=== PATIENT | male | born 1980 | race Caucasian/White ===

== ENCOUNTER 2017-05-31 11:32 | Emergency (ER) | payer OTHER ==
[2017-05-31] MEDS ORDERED: KETOROLAC TROMETHAMINE INJ/PF 30 MG/1 ML SDV IV ONE (12:07)
[2017-05-31 12:31] LABS: ABSOLUTE BASOPHILS # (AUTO) 0.1 10^3/uL (0.0-0.2); ABSOLUTE EOSINOPHILS # (AUTO) 0.1 10^3/uL (0.0-0.6); ABSOLUTE LYMPHOCYTES (AUTO) 2.2 10^3/uL (0.5-4.7); ABSOLUTE MONOCYTES (AUTO) 0.5 10^3/uL (0.1-1.4); ABSOLUTE NEUT (AUTO) 6.4 10^3/uL (1.7-8.2); ADD ON TESTING BLD IN LAB ACKNOWLEDGE; BASOPHILS % (AUTO) 0.5 % (0-2); EOSINOPHILS % (AUTO) 0.6 % (0-6); HEMATOCRIT 48.9 % (37.9-51.0); HEMOGLOBIN 16.5 g/dL (13.5-17.0); HGB HCT DIFFERENCE 0.6; LYMPHOCYTES % (AUTO) 24.2 % (13-45); MEAN CORPUSCULAR HEMOGLOBIN 30.8 pg (27.0-33.4); MEAN CORPUSCULAR HGB CONC 33.7 g/dL (32.0-36.0); MEAN CORPUSCULAR VOLUME 91 fl (80-97); MONOCYTES % (AUTO) 5.4 % (3-13); RED BLOOD COUNT 5.36 10^6/uL (4.35-5.55); RED CELL DISTRIBUTION WIDTH 14.2 % (11.5-14.0); SEGMENTED NEUTROPHILS % (AUTO) 69.3 % (42-78); WHITE BLOOD COUNT 9.2 10^3/uL (4.0-10.5)
[2017-05-31 12:34] LABS: APPEARANCE,URINE CLEAR; BILIRUBIN,URINE NEGATIVE (NEGATIVE); GLUCOSE, URINE NEGATIVE (NEGATIVE); KETONES,URINE NEGATIVE (NEGATIVE); LEUKOCYTE ESTERASE,URINE TRACE (NEGATIVE); NITRITE,URINE NEGATIVE (NEGATIVE); PROTEIN,URINE NEGATIVE (NEGATIVE); URINE SPECIFIC GRAVITY 1.004; UROBILINOGEN,URINE NEGATIVE mg/dL (<2.0)
[2017-05-31 12:43] LABS: LITHIUM < 0.2 mEq/L (0.6-1.2)
[2017-05-31 12:47] LABS: ALANINE AMINOTRANSFERASE 25 U/L (21-72); ALBUMIN 4.8 g/dL (3.5-5.0); ALKALINE PHOSPHATASE 80 U/L (38-126); ANION GAP 12 (5-19); ASPARTATE AMINO TRANSFERASE 17 U/L (17-59); BILIRUBIN,DIRECT 0.4 mg/dL (0.0-0.4); BILIRUBIN,TOTAL 0.5 mg/dL (0.2-1.3); BLOOD UREA NITROGEN 14 mg/dL (7-20); CALCIUM 10.6 mg/dL (8.4-10.2); CARBON DIOXIDE 26 mmol/L (22-30); CHLORIDE 102 mmol/L (98-107); GLUCOSE 87 mg/dL (75-110); LIPASE 56.4 U/L (23-300); POTASSIUM 4.6 mmol/L (3.6-5.0); SODIUM 139.8 mmol/L (137-145); TOTAL PROTEIN 7.8 g/dL (6.3-8.2)
[2017-05-31] MEDS ORDERED: MORPHINE SULFATE 10 MG/ML INJ IV ONE (12:49)
--- NOTE | 2017-05-31 14:16 | RADIOLOGY REPORT (SQ) ---
EXAM DESCRIPTION: CT LTD RENAL STONE PROTOCOL ON COMPLETED DATE/TIME: 05/31/2017 2:04 pm REASON FOR STUDY: r flank pain COMPARISON: None. TECHNIQUE: CT scan of the abdomen and pelvis performed without intravenous or oral contrast. Images reviewed with lung, soft tissue, and bone windows. Reconstructed coronal and sagittal MPR images revi ewed. All images stored on PACS. All CT scanners at this facility use dose modulation, iterative reconstruction, and/or weight based d osing when appropriate to reduce radiation dose to as low as reasonably achievable (ALARA). [facility]: Dose Right [facility]: CareDose [facility]: Dose Right [facility]: Teradose 4D [facility]: [employer] RADIATION DOSE: mGy. LIMITATIONS: None. FINDINGS: LOWER CHEST: No significant findings. No nodules or infiltrates. NON-CONTRASTED LIVER, SPLEEN, ADRENALS: Evaluation limited by lack of IV contrast. No identified sign ificant masses. PANCREAS: No masses. No peripancreatic inflammatory changes. GALLBLADDER: No identified stones by CT criteria. No inflammatory changes to suggest cholecystitis. RIGHT KIDNEY AND URETER: No suspicious masses. Assessment limited by lack of IV contrast. Couple sm all nonobstructing renal calculi are identified. No hydronephrosis or hydroureter. LEFT KIDNEY AND URETER: No suspicious masses. Assessment limited by lack of IV contrast. Small nono bstructing renal calculus is identified. No hydronephrosis or hydroureter. AORTA AND RETROPERITONEUM: No aneurysm. No retroperitoneal masses or adenopathy. BOWEL AND PERITONEAL CAVITY: No obvious masses or inflammatory changes. No free fluid. APPENDIX: Status post appendectomy. PELVIS, BLADDER, AND ABDOMINAL WALL:No abnormal masses. No free fluid. Bladder normal. BONES: No significant findings. OTHER: No other significant finding. IMPRESSION: Small bilateral nonobstructing renal calculi. No obstructive changes are identified. O ther findings as noted above TECHNICAL DOCUMENTATION: JOB ID: [id number] Quality ID # [id number]: Final reports with documentation of one or more dose reduction techniques (e.g., Au tomated exposure control, adjustment of the mA and/or kV according to patient size, use of iterative reconstruction technique) 2010 [employer]- All Rights Reserved
--- NOTE | 2017-05-31 14:53 | ER Document Report ---
ED GI/ - General Chief Complaint: Possible Kidney Stone Stated Complaint: FLANK PAIN Time Seen by Provider: 05/31/17 12:08 Mode of Arrival: Ambulatory Information source: Patient Notes: Patient presents complaining of right flank pain for the past 3 days. Patient states that he has pain that radiates to his penis. Patient denies any scrotal pain. Patient does complain of some dysuria. Patient has a history kidney stones and suspects the same today. Patient denies any fever, nausea, vomiting , or diarrhea. Patient states that he has not seen his urologist in over a year. TRAVEL OUTSIDE OF THE [place] IN LAST 30 DAYS: No - HPI Patient complains to provider of: Dysuria, Flank pain. No: Abdominal pain, Testicular pain Onset: Other - 3 days Timing/Duration: Persistent Quality of pain: Sharp Pain Level: 5 Location: Right flank Associated symptoms: Dysuria. denies: Fever, Nausea, Urinary hesitancy, Urinary frequency, Urinary retention, Urinary urgency, Vomiting Exacerbated by: Denies Relieved by: Denies Similar symptoms previously: Yes Recently seen / treated by doctor: No - Related Data Allergies/Adverse Reactions: amoxicillin trihydrate [From Amoxil] Allergy (Verified 11/28/13 16:33) Past Medical History - General Information source: Patient - Social History Smoking Status: Current Every Day Smoker Cigarette use (# per day): Yes - for at least 3 min Smoking Education Provided: Yes - For at least 3 minutes Drug Abuse: None Occupation: none Lives with: Family Family History: Reviewed & Not Pertinent - Medical History Notes: Patient's medication list reviewed with patient. Renal/ Medical History: Reports: Hx Kidney Stones. Denies: Hx Peritoneal Dialysis Psychiatric Medical History: Reports: Hx Depression, Hx Post Traumatic Stress Disorder Past Surgical History: Reports: Hx Genitourinary Surgery - kidney stent, stone removal, Hx Orthopedic Surgery - Immunizations Hx Diphtheria, Pertussis, Tetanus Vaccination: Yes Review of Systems - Review of Systems Constitutional: No symptoms reported. denies: Fever, Recent illness EENT: No symptoms reported Cardiovascular: No symptoms reported. denies: Chest pain Respiratory: No symptoms reported. denies: Cough, Short of breath Gastrointestinal: No symptoms reported. denies: Abdominal pain, Nausea, Vomiting Genitourinary: Dysuria, Flank pain. denies: Hematuria Male Genitourinary: No symptoms reported Musculoskeletal: Back pain Skin: No symptoms reported Hematologic/Lymphatic: No symptoms reported Neurological/Psychological: No symptoms reported Physical Exam - Vital signs Vitals: Temp Pulse Resp BP Pulse Ox 98.5 F 86 16 141/76 H 99 05/31/17 11:39 05/31/17 11:39 05/31/17 11:39 05/31/17 11:39 05/31/17 11:39 - General General appearance: Appears well, Alert In distress: None - HEENT Head: Normocephalic, Atraumatic Eyes: Normal Conjunctiva: Normal Nasal: Normal Mouth/Lips: Normal Mucous membranes: Normal Pharynx: Normal Neck: Normal, Supple. No: Lymphadenopathy - Respiratory Respiratory status: No respiratory distress Chest status: Nontender Breath sounds: Normal. No: Rales, Rhonchi, Stridor, Wheezing Chest palpation: Normal - Cardiovascular Rhythm: Regular Heart sounds: S1 appreciated, S2 appreciated Murmur: No - Abdominal Inspection: Normal Distension: No distension Bowel sounds: Normal Tenderness: Nontender Organomegaly: No organomegaly - Genitourinary Inspection: Normal. No: Blood at meatus, Penile discharge Tenderness: Nontender Cremasteric reflex: Normal Scrotum: Normal. No: Swelling, Redness Notes: RN Geovanna as standby during examination - Back Back: CVA tenderness - right. No: Vertebra tenderness - Extremities General upper extremity: Normal inspection, Normal ROM General lower extremity: Normal inspection, Normal ROM - Neurological Neuro grossly intact: Yes Cognition: Normal [place] Coma Scale Eye Opening: Spontaneous [place] Coma Scale Verbal: Oriented [place] Coma Scale Motor: Obeys Commands [place] Coma Scale Total: 15 - Psychological Associated symptoms: Normal affect, Normal mood - Skin Skin Temperature: Warm Skin Moisture: Dry Skin Color: Normal Course - Re-evaluation Re-evalutation: 05/31/17 14:49 Patient without any ureteral stones by CT examination. Patient complains of continued right flank pain and is requesting narcotics apply for 3 days after discharge. Patient advised that he should follow-up with urologist for further evaluation. Discussed patient's previous use of heroin and discussed concern about use of narcotics. Patient states that he is not currently using any kind of recreational drugs. Patient states that his urologist has told in the past that as the stones attempt to leave his kidney he can have flank pain and that is what he suspects is going on at this time. - Vital Signs Vital signs: Temp Pulse Resp BP Pulse Ox 98.2 F 77 18 125/81 100 05/31/17 15:08 05/31/17 15:08 05/31/17 15:08 05/31/17 15:08 05/31/17 15:08 - Laboratory Result Diagrams: 05/31/17 12:15 05/31/17 12:15 Laboratory results interpreted by me: 05/31/17 05/31/17 05/31/17 12:15 12:15 12:15 RDW 14.2 H Calcium 10.6 H Urine Blood LARGE H Ur Leukocyte Esterase TRACE H [place] 05/31/17 12:15 RDW Calcium Urine Blood Ur Leukocyte Esterase [place] < 0.2 L 05/31/17 14:49 Labs- Entire Visit 05/31/17 05/31/17 05/31/17 12:15 12:15 12:15 WBC 9.2 RBC 5.36 Hgb 16.5 Hct 48.9 MCV 91 MCH 30.8 MCHC 33.7 RDW 14.2 H Plt Count 368 Seg Neutrophils % 69.3 Lymphocytes % 24.2 Monocytes % 5.4 Eosinophils % 0.6 Basophils % 0.5 Absolute Neutrophils 6.4 Absolute Lymphocytes 2.2 Absolute Monocytes 0.5 Absolute Eosinophils 0.1 Absolute Basophils 0.1 Sodium 139.8 Potassium 4.6 Chloride 102 Carbon Dioxide 26 Anion Gap 12 BUN 14 Creatinine 1.10 Est GFR ( Amer) > 60 Est GFR (Non-Af Amer) > 60 Glucose 87 Calcium 10.6 H Total Bilirubin 0.5 Direct Bilirubin 0.4 Indirect Bilirubin Not Reportable Neonat Total Bilirubin Not Reportable AST 17 ALT 25 Alkaline Phosphatase 80 Total Protein 7.8 Albumin 4.8 Lipase 56.4 Urine Color STRAW Urine Appearance CLEAR Urine pH 6.0 Ur Specific [place] 1.004 Urine Protein NEGATIVE Urine Glucose (UA) NEGATIVE Urine Ketones NEGATIVE Urine Blood LARGE H Urine Nitrite NEGATIVE Urine Bilirubin NEGATIVE Urine Urobilinogen NEGATIVE Ur Leukocyte Esterase TRACE H Urine WBC (Auto) 2 Urine RBC (Auto) 45 Urine Bacteria (Auto) TRACE Squamous Epi Cells Auto <1 Urine Mucus (Auto) RARE Urine Ascorbic Acid NEGATIVE [place] 05/31/17 12:15 WBC RBC Hgb Hct MCV MCH MCHC RDW Plt Count Seg Neutrophils % Lymphocytes % Monocytes % Eosinophils % Basophils % Absolute Neutrophils Absolute Lymphocytes Absolute Monocytes Absolute Eosinophils Absolute Basophils Sodium Potassium Chloride Carbon Dioxide Anion Gap BUN Creatinine Est GFR ( Amer) Est GFR (Non-Af Amer) Glucose Calcium Total Bilirubin Direct Bilirubin Indirect Bilirubin Neonat Total Bilirubin AST ALT Alkaline Phosphatase Total Protein Albumin Lipase Urine Color Urine Appearance Urine pH Ur Specific [place] Urine Protein Urine Glucose (UA) Urine Ketones Urine Blood Urine Nitrite Urine Bilirubin Urine Urobilinogen Ur Leukocyte Esterase Urine WBC (Auto) Urine RBC (Auto) Urine Bacteria (Auto) Squamous Epi Cells Auto Urine Mucus (Auto) Urine Ascorbic Acid [place] < 0.2 L 05/31/17 14:52 - Diagnostic Test Radiology reviewed: Reports reviewed Discharge - Discharge Clinical Impression: Flank pain, Elevated blood pressure reading, Kidney stone Hematuria Qualifiers: Hematuria type: unspecified type Qualified Code(s): R31.9 - Hematuria, unspecified Condition: Stable Disposition: HOME, SELF-CARE Instructions: Oral Narcotic Medication ([facility]), Toradol Injection ([facility]), Hematuria ([facility]), Flank Pain ([facility]), Flomax ([facility]) Additional Instructions: Return immediately for any new or worsening symptoms Followup with your primary care provider, call tomorrow to make a followup appointment Follow-up with a urologist for further evaluation, call tomorrow for an appointment Prescriptions: Hydrocodone/Acetaminophen [[place] 5-325 Tablet] 1 each PO Q4 PRN #8 tablet PRN Reason: Naproxen [Naprosyn 250 Nmg Tablet] 1 tab PO BID #14 tablet Tamsulosin HCl [Flomax 0.4 mg Cap.sr] 0.4 mg PO DAILY #7 cap.sr.24h Forms: Elevated Blood Pressure, Smoking Cessation Education Referrals: [facility] [Provider Group] - Follow up as needed [facility] [Provider Group] - Follow up tomorrow
[2017-05-31 15:12] VITALS: BP 125/81
== END 2017-05-31 15:12 | disposition home or self-care (01) ==
LOC: ER 11:32
DX: N20.0 Calculus of kidney (principal); R30.0 Dysuria; R10.9 Unspecified abdominal pain; M54.9 Dorsalgia, unspecified; R31.9 Hematuria, unspecified; R03.0 Elevated blood-pressure reading, without diagnosis of hypertension; F17.210 Nicotine dependence, cigarettes, uncomplicated; Z71.6 Tobacco abuse counseling; Z88.0 Allergy status to penicillin
CPT/HCPCS: 99284; 96374; 96375; 36415; 87086; 83690; 80178; 85025; 80053; 81001; 76380; J1885; J2270

== ENCOUNTER → 2017-10-05 | Outpatient (CLI) | payer OTHER ==
[2017-10-05 13:34] LABS: ALANINE AMINOTRANSFERASE 48 U/L (21-72); ALBUMIN 4.5 g/dL (3.5-5.0); ALKALINE PHOSPHATASE 72 U/L (38-126); ANION GAP 11 (5-19); ASPARTATE AMINO TRANSFERASE 25 U/L (17-59); BILIRUBIN,DIRECT 0.2 mg/dL (0.0-0.4); BILIRUBIN,TOTAL 0.2 mg/dL (0.2-1.3); BLOOD UREA NITROGEN 9 mg/dL (7-20); CALCIUM 9.9 mg/dL (8.4-10.2); CARBON DIOXIDE 29 mmol/L (22-30); CHLORIDE 106 mmol/L (98-107); CREATININE RESULT 1.05 mg/dL (0.52-1.25); GLUCOSE 88 mg/dL (75-110); POTASSIUM 4.9 mmol/L (3.6-5.0); SODIUM 145.7 mmol/L (137-145)
== END ==
LOC: OD 12:07
DX: N18.2 Chronic kidney disease, stage 2 (mild) (principal); F43.10 Post-traumatic stress disorder, unspecified; F31.9 Bipolar disorder, unspecified; F20.9 Schizophrenia, unspecified; M54.31 Sciatica, right side
CPT/HCPCS: 36415; 80053

== ENCOUNTER 2017-10-12 18:54 | Emergency (ER) | payer OTHER ==
[2017-10-12] MEDS ORDERED: KETOROLAC TROMETHAMINE 60 MG/2 ML SDV IM ONE (19:31)
[2017-10-12] MEDS ORDERED: CYCLOBENZAPRINE HCL 10 MG TABLET PO ONE (19:31)
[2017-10-12] MEDS ORDERED: DEXAMETHASONE SOD PHOS INJ 10 MG/1 ML VIAL IM ONE (19:31)
--- NOTE | 2017-10-12 19:33 | ER Document Report ---
ED Medical Screen (RME) - General Chief Complaint: Hip Pain Stated Complaint: LEFT HIP/BACK PAIN Time Seen by Provider: 10/12/17 19:26 Mode of Arrival: Wheelchair Information source: Patient Notes: 37-year-old male presents with complaints of flank pain. Patient notes is chronic in nature unsure what is because of it. Pt admits ot using heroin for the pain, has overdosed in the past I have greeted and performed a rapid initial assessment of this patient. A comprehensive ED assessment and evaluation of the patient, analysis of test results and completion of the medical decision making process will be conducted by additional ED providers. PHYSICAL EXAMINATION: GENERAL: Well-appearing, well-nourished HEAD: Atraumatic, normocephalic. EYES: Pupils equal round extraocular movements intact, conjunctiva are normal. ENT: Nares patent NECK: Normal range of motion LUNGS: No respiratory distress NEUROLOGICAL: Normal speech, normal gait. PSYCH: Normal mood, normal affect. SKIN: Warm, Dry, normal turgor, no rashes or lesions noted. TRAVEL OUTSIDE OF THE [place] IN LAST 30 DAYS: No - Related Data Allergies/Adverse Reactions: amoxicillin trihydrate [From Amoxil] Allergy (Verified 10/12/17 18:56) Past Medical History - Social History Chew tobacco use (# tins/day): No Frequency of alcohol use: None Drug Abuse: Heroin, Prescription drugs Renal/ Medical History: Reports: Hx Kidney Stones. Denies: Hx Peritoneal Dialysis Psychiatric Medical History: Reports: Hx Depression - PTSD, Hx Post Traumatic Stress Disorder Past Surgical History: Reports: Hx Appendectomy, Hx Genitourinary Surgery - kidney stent, stone removal, Hx Orthopedic Surgery - right ankle, Hx Tonsillectomy - Immunizations Hx Diphtheria, Pertussis, Tetanus Vaccination: Yes Physical Exam - Vital signs Vitals: Temp Pulse Resp BP Pulse Ox 99.1 F 93 20 131/82 H 99 10/12/17 19:05 10/12/17 19:05 10/12/17 19:05 10/12/17 19:05 10/12/17 19:05 Course - Vital Signs Vital signs: Temp Pulse Resp BP Pulse Ox 99.1 F 93 20 131/82 H 99 10/12/17 19:05 10/12/17 19:05 10/12/17 19:05 10/12/17 19:05 10/12/17 19:05
--- NOTE | 2017-10-12 20:52 | ER Document Report ---
ED General - General Chief Complaint: Hip Pain Stated Complaint: LEFT HIP/BACK PAIN Time Seen by Provider: 10/12/17 19:26 Mode of Arrival: Wheelchair Notes: Patient is a 37-year-old male that comes emergency department for chief complaint of left hip pain, worsening over the past couple weeks, he points to his proximal thigh as the area that seems to be hurting him. He denies injury. He states he can walk on the area but it hurts. 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 He denies incontinence, fever. He states right now his back does not even hurt it is just in his thigh. He denies any daily medications other than being prescribed Percocet which he states did not help. He denies IV drug abuse history. TRAVEL OUTSIDE OF THE [place] IN LAST 30 DAYS: No - Related Data Allergies/Adverse Reactions: amoxicillin trihydrate [From Amoxil] Allergy (Verified 10/12/17 18:56) Past Medical History - General Information source: Patient - Social History Smoking Status: Current Every Day Smoker Chew tobacco use (# tins/day): No Frequency of alcohol use: None Drug Abuse: Heroin, Prescription drugs Family History: Reviewed & Not Pertinent Patient has suicidal ideation: No Patient has homicidal ideation: No Renal/ Medical History: Reports: Hx Kidney Stones. Denies: Hx Peritoneal Dialysis Psychiatric Medical History: Reports: Hx Depression - PTSD, Hx Post Traumatic Stress Disorder Past Surgical History: Reports: Hx Appendectomy, Hx Genitourinary Surgery - kidney stent, stone removal, Hx Orthopedic Surgery - right ankle, Hx Tonsillectomy - Immunizations Hx Diphtheria, Pertussis, Tetanus Vaccination: Yes Review of Systems - Review of Systems Constitutional: No symptoms reported EENT: No symptoms reported Cardiovascular: No symptoms reported Respiratory: No symptoms reported Gastrointestinal: No symptoms reported Genitourinary: No symptoms reported Male Genitourinary: No symptoms reported Musculoskeletal: See HPI Skin: No symptoms reported Hematologic/Lymphatic: No symptoms reported Neurological/Psychological: No symptoms reported Physical Exam - Vital signs Vitals: Temp Pulse Resp BP Pulse Ox 99.1 F 93 20 131/82 H 99 10/12/17 19:05 10/12/17 19:05 10/12/17 19:05 10/12/17 19:05 10/12/17 19:05 Interpretation: Normal - General General appearance: Appears well, Alert - HEENT Head: Normocephalic, Atraumatic Eyes: Normal Pupils: PERRL - Respiratory Respiratory status: No respiratory distress Chest status: Nontender Breath sounds: Normal Chest palpation: Normal - Cardiovascular Rhythm: Regular Heart sounds: Normal auscultation Murmur: No - Abdominal Inspection: Normal Distension: No distension Bowel sounds: Normal Tenderness: Nontender - Nontender abdomen, no evidence of hernia or other abnormality on exam. No: Tender Organomegaly: No organomegaly - Back Back: Normal, Nontender. No: Tender, Vertebra tenderness - Nontender, no paraspinal tenderness, no saddle anesthesia, normal back exam - Extremities General upper extremity: Normal inspection, Nontender, Normal color, Normal ROM , Normal temperature General lower extremity: Other - Pain over the left anterior thigh proximally tending towards the groin, full range of motion intact, no swelling, abnormal heat to the area, normal lower extremity exam otherwise. - Neurological Neuro grossly intact: Yes Cognition: Normal Orientation: AAOx4 Jc Coma Scale Eye Opening: Spontaneous Jc Coma Scale Verbal: Oriented Jc Coma Scale Motor: Obeys Commands Jc Coma Scale Total: 15 Speech: Normal Motor strength normal: LUE, RUE, LLE, RLE Sensory: Normal - Psychological Associated symptoms: Normal affect, Normal mood - Skin Skin Temperature: Warm Skin Moisture: Dry Skin Color: Normal Course - Re-evaluation Re-evalutation: Patient denied IV drug abuse history to me, however triage note reports the patient stated he has been shooting up heroin for pain control. He does not have any fever, no numbness, he has no back pain now, it is only pain in his proximal thigh. X-ray of the hip shows no abnormality. Patient ambulates with minimal discomfort. No numbness, no saddle anesthesia, no neurological deficits reported, no fever. No back pain. Very low suspicion of epidural abscess, septic joint, spinal cord impingement. Patient states that after being treated with Toradol, muscle relaxer, dexamethasone he actually feels much better and he can rest comfortably and only feels pain with movement. Patient provided with a copy of his reports, [facility] and states he was planning on being referred to spinal surgery through them, states he was told he needs this. Providing with prednisone, muscle relaxers after discussion, discussed follow-up and return precautions in detail, patient states understanding and agreement. - Vital Signs Vital signs: Temp Pulse Resp BP Pulse Ox 99.1 F 86 18 121/70 97 10/12/17 19:05 10/12/17 22:16 10/12/17 22:16 10/12/17 22:16 10/12/17 22:16 Discharge - Discharge Clinical Impression: Left hip pain Lower back pain Qualifiers: Chronicity: acute Back pain laterality: left Sciatica presence: with sciatica Sciatica laterality: sciatica of left side Qualified Code(s): M54.42 - Lumbago with sciatica, left side Condition: Stable Disposition: HOME, SELF-CARE Additional Instructions: Your hip x-ray does not show any abnormalities. Take the prescribed medications (prednisone, flexeril) for your back and leg, follow up within the next few days with your provider for potential referral and additional management. Return if you develop any concerning or worsening symptoms - fever, numbness, loss of bowel or bladder control, increased pain, or any other concerning symptoms. Prescriptions: Cyclobenzaprine HCl [Flexeril 5 mg Tablet] 1 - 2 tab PO TID PRN #20 tablet PRN Reason: Prednisone [Deltasone 10 mg Tablet] 10 mg PO ASDIR PRN #21 tablet PRN Reason:
--- NOTE | 2017-10-12 21:30 | RADIOLOGY REPORT (SQ) ---
EXAM DESCRIPTION: HIP LEFT AP/LATERAL COMPLETED DATE/TIME: 10/12/2017 9:22 pm REASON FOR STUDY: left hip pain COMPARISON: None. NUMBER OF VIEWS: Two views. TECHNIQUE: AP pelvis and additional frog-leg view of the left hip. LIMITATIONS: None. FINDINGS: MINERALIZATION: Normal. LEFT HIP: No fracture or dislocation. No worrisome bone lesions. No contour deformity. No joint spa ce narrowing. RIGHT HIP: No fracture or dislocation. No worrisome bone lesions. PUBIS AND ISCHIUM: No fracture. PELVIS: No fracture. SACRUM: No fracture or dislocation. No worrisome bone lesions. LOWER LUMBAR SPINE: No fracture or dislocation. No worrisome bone lesions. No significant disc disea se. SOFT TISSUES: No findings. OTHER: No other significant finding. IMPRESSION: NEGATIVE STUDY OF THE LEFT HIP AND PELVIS. NO EXPLANATION FOR PAIN. TECHNICAL DOCUMENTATION: JOB ID: [id number] [employer]- All Rights Reserved
[2017-10-12] MEDS ORDERED: HYDROCODONE/ACETAMINOPHEN 5-325 MG 6 TAB/DSPK PO PRN (21:56)
[2017-10-12 22:19] VITALS: BP 121/70
== END 2017-10-12 22:18 | disposition home or self-care (01) ==
LOC: ER 18:54
DX: M54.42 Lumbago with sciatica, left side (principal); M25.552 Pain in left hip; F17.200 Nicotine dependence, unspecified, uncomplicated; Z88.0 Allergy status to penicillin; Z87.442 Personal history of urinary calculi
CPT/HCPCS: 73502; 99283; 96372; J1885; J1100

== ENCOUNTER 2017-10-24 04:34 | Emergency (ER) | payer OTHER ==
[2017-10-24] MEDS ORDERED: DEXAMETHASONE SOD PHOS INJ 10 MG/1 ML VIAL IM ONE (05:03)
[2017-10-24] MEDS ORDERED: MORPHINE SULFATE 10 MG/ML INJ IM ONE (05:03)
--- NOTE | 2017-10-24 05:11 | ER Document Report ---
HPI - HPI Patient complains to provider of: lower back pain Pain Level: 5 Context: Patient is a 37-year-old male comes emergency department for chief complaint of "sciatica". He states he has a lot of pain in his left lower back, radiates to his left leg, he also has some pain in the anterior thigh on the left leg. He states he is evaluated 2 weeks ago and afterwards he was doing much better, symptoms actually resolved, however he states that over the past 3 days he has had increased pain and tonight he was limping and could not stand it. He denies numbness, fever, redness, incontinence, new injury. He states that he is already been referred for another MRI updating his older one and that he was referred to pain management but they are closed due to weather conditions. He is on medications including gabapentin and amitriptyline. Past Medical History - General Information source: Patient - Social History Smoking Status: Former Smoker Frequency of alcohol use: Occasional Drug Abuse: None Lives with: Alone Family History: Reviewed & Not Pertinent Renal/ Medical History: Reports: Hx Kidney Stones. Denies: Hx Peritoneal Dialysis Psychiatric Medical History: Reports: Hx Depression - PTSD, Hx Post Traumatic Stress Disorder Past Surgical History: Reports: Hx Appendectomy, Hx Genitourinary Surgery - kidney stent, stone removal, Hx Orthopedic Surgery - right ankle, Hx Tonsillectomy - Immunizations Hx Diphtheria, Pertussis, Tetanus Vaccination: Yes Vertical Provider Document - CONSTITUTIONAL General Appearance: Mild Distress - Patient moves with discomfort, otherwise he does not appear to be in any significant distress - INFECTION CONTROL TRAVEL OUTSIDE OF THE [place] IN LAST 30 DAYS: No - HEENT HEENT: Atraumatic, Normocephalic - NECK Neck: Normal Inspection - RESPIRATORY Respiratory: Breath Sounds Normal, No Respiratory Distress - CARDIOVASCULAR Cardiovascular: Regular Rate, Regular Rhythm - GI/ABDOMEN Gastrointestinal: Abdomen Soft, Abdomen Non-Tender - BACK Back: negative: Normal Inspection - Painful left lumbar paraspinal musculature and gluteal muscles, no midline tenderness, no saddle anesthesia, moves all extremities and full range of motion, normal distal N/V exam - NEURO Level of Consciousness: Awake, Alert - DERM Integumentary: Warm, Dry, No Rash Course - Re-evaluation Re-evalutation: Patient continues to complain of hip pain, however he has full range of motion of the hip which does not suggest septic joint. He had an x-ray of this recently, he denies any recent injuries to the area. Patient with no saddle anesthesia or focal neurological deficits. He can ambulate but with some pain. Patient states that he has a follow-up MRI and pain management this week but they were closed due to inclement weather. Patient treated for pain here, given dose of dexamethasone, will provide with remedies at home, discussed return precautions, patient states understanding and agreement. Discharge - Discharge Clinical Impression: Left leg pain Lower back pain Qualifiers: Chronicity: chronic Back pain laterality: left Sciatica presence: unspecified whether sciatica present Qualified Code(s): M54.5 - Low back pain Condition: Stable Disposition: HOME, SELF-CARE Additional Instructions: Please follow-up with both your MRI and your pain management referrals. Return if you worsen including fever, loss of bowel or bladder control, new numbness, or any other concerning symptoms. Prescriptions: Ketorolac Tromethamine [Toradol 10 mg Tablet] 10 mg PO Q8HP PRN #24 tablet PRN Reason: Methocarbamol [Robaxin 750 mg Tablet] 750 mg PO Q6 #20 tablet
[2017-10-24] MEDS ORDERED: CYCLOBENZAPRINE HCL 10 MG TABLET PO ONE (06:23)
[2017-10-24] MEDS ORDERED: KETOROLAC TROMETHAMINE 60 MG/2 ML SDV IM ONE (06:24)
[2017-10-24 07:19] VITALS: BP 141/82
== END 2017-10-24 07:19 | disposition home or self-care (01) ==
LOC: ER 04:34
DX: M79.605 Pain in left leg (principal); M54.5 Low back pain; M79.652 Pain in left thigh; Z87.891 Personal history of nicotine dependence
CPT/HCPCS: 99283; 96372; J1885; J2270; J1100

== ENCOUNTER 2017-10-29 13:58 | Emergency (ER) | payer OTHER ==
[2017-10-29 14:19] VITALS: BP 146/110
== END 2017-10-29 17:52 | disposition left against medical advice (07) ==
LOC: ER 13:58
DX: Z53.21 Procedure and treatment not carried out due to patient leaving prior to being seen by health care provider (principal)

== ENCOUNTER 2017-11-02 04:55 | Emergency (ER) | payer OTHER ==
--- NOTE | 2017-11-02 05:34 | ER Document Report ---
ED Medical Screen (RME) - General Chief Complaint: Back Pain Stated Complaint: BACK PAIN Time Seen by Provider: 11/02/17 05:33 TRAVEL OUTSIDE OF THE [place] IN LAST 30 DAYS: No - HPI Notes: 11/02/17 05:33 Patient is a 37-year-old male who presents the ED complaining of left lower back pain, left buttock pain 3 weeks, but worsened over the last couple days. Patient states that he does have chronic issues with his back, but has been to the ED on several occasions since because of this back pain. Patient states that he has not had an MRI in 2 years. Patient arrived by EMS and has been yelling and screaming constantly due to pain. Patient has not been able to sit still because of the pain and cannot find a position that is comfortable. Patient states that the pain is primarily to the left buttock and travels down the posterior left leg to his ankle. Patient is taking diclofenac , Toradol, Tylenol, Lidoderm patches, [place] Patient states that nothing is currently helping with his pain. He denies any diabetes, cancer, IV drug use, recent injection/surgery to his lower back. He denies any other recent illness. Denies any headache, fever, head injury, neck pain, URI, sore throat, chest pain, palpitations, syncope, cough, shortness of breath, wheeze, dyspnea, abdominal pain, nausea/vomiting/diarrhea, urinary retention, dysuria, hematuria, loss of control of bowel or bladder, saddle anesthesia, muscle paralysis/weakness, or rash. I have treated and performed a rapid initial assessment of this patient. A comprehensive ED assessment and evaluation of the patient, analysis of test results and completion of medical decision making process will be conducted by additional ED providers. - Related Data Allergies/Adverse Reactions: amoxicillin trihydrate [From Amoxil] Allergy (Verified 10/29/17 13:59) Past Medical History Renal/ Medical History: Reports: Hx Kidney Stones. Denies: Hx Peritoneal Dialysis Psychiatric Medical History: Reports: Hx Depression - PTSD, Hx Post Traumatic Stress Disorder Past Surgical History: Reports: Hx Appendectomy, Hx Genitourinary Surgery - kidney stent, stone removal, Hx Orthopedic Surgery - right ankle, Hx Tonsillectomy - Immunizations Hx Diphtheria, Pertussis, Tetanus Vaccination: Yes Physical Exam - Respiratory Respiratory status: No respiratory distress Breath sounds: Normal - Cardiovascular Rhythm: Regular Heart sounds: Normal auscultation - Back Back: Tender - Left buttock, left low back.
[2017-11-02] MEDS ORDERED: DEXAMETHASONE SOD PHOS INJ 10 MG/1 ML VIAL IM ONE (05:39)
[2017-11-02] MEDS ORDERED: KETOROLAC TROMETHAMINE INJ/PF 30 MG/1 ML SDV IV ONE (05:39)
[2017-11-02] MEDS ORDERED: DIAZEPAM INJ 10 MG/2 ML DISP.SYRIN IM ONE (06:14)
--- NOTE | 2017-11-02 06:27 | ER Document Report ---
ED Neck/Back Problem - General Chief Complaint: Back Pain Stated Complaint: BACK PAIN Time Seen by Provider: 11/02/17 05:33 Notes: The patient is a 37-year-old male, past medical history chronic low back pain with left sciatica, presents with worsening low back pain and tingling down his right leg for the past 3 days. He follows at [facility] and is taking Tylenol, meloxicam, Toradol, Robaxin using Lidoderm patches without much relief of his symptoms. He was supposed to have an outpatient MRI and referral to pain management, but this was canceled due to snow last week. He was unable to have it rescheduled. Patient is now having increased difficulty urinating and stooling the past day. He denies saddle anesthesia, fevers, rash, headache, nausea, vomiting, back injury or calf tenderness. TRAVEL OUTSIDE OF THE [place] IN LAST 30 DAYS: No - Related Data Allergies/Adverse Reactions: amoxicillin trihydrate [From Amoxil] Allergy (Verified 10/29/17 13:59) Past Medical History - General Information source: Patient - Social History Smoking Status: Never Smoker Chew tobacco use (# tins/day): No Frequency of alcohol use: None Drug Abuse: None Family History: Reviewed & Not Pertinent Patient has suicidal ideation: No Patient has homicidal ideation: No Renal/ Medical History: Reports: Hx Kidney Stones. Denies: Hx Peritoneal Dialysis Psychiatric Medical History: Reports: Hx Depression - PTSD, Hx Post Traumatic Stress Disorder Past Surgical History: Reports: Hx Appendectomy, Hx Genitourinary Surgery - kidney stent, stone removal, Hx Orthopedic Surgery - right ankle, Hx Tonsillectomy - Immunizations Hx Diphtheria, Pertussis, Tetanus Vaccination: Yes Review of Systems - Review of Systems Notes: REVIEW OF SYSTEMS: CONSTITUTIONAL: -fevers, -chills EENT: -eye pain, -difficulty swallowing, -nasal congestion CARDIOVASCULAR: -chest pain, -syncope. RESPIRATORY: -cough, -SOB GASTROINTESTINAL: -abdominal pain, -nausea, -vomiting, -diarrhea GENITOURINARY: -dysuria, -hematuria MUSCULOSKELETAL: +back pain, -neck pain SKIN: -rash or skin lesions. HEMATOLOGIC: -easy bruising or bleeding. LYMPHATIC: -swollen, enlarged glands. NEUROLOGICAL: -altered mental status or loss of consciousness, -headache, + tingling down left leg PSYCHIATRIC: -anxiety, -depression. ALL OTHER SYSTEMS REVIEWED AND NEGATIVE. Physical Exam - Vital signs Vitals: Temp Pulse Resp BP Pulse Ox 98.1 F 50 L 20 154/53 H 100 11/02/17 05:03 11/02/17 05:03 11/02/17 05:03 11/02/17 05:03 11/02/17 05:03 - Notes Notes: PHYSICAL EXAMINATION: GENERAL: Uncomfortable. HEAD: Atraumatic, normocephalic. EYES: Pupils equal round and reactive to light, extraocular movements intact, sclera anicteric, conjunctiva are normal. ENT: nares patent, oropharynx clear without exudates. Moist mucous membranes. NECK: Normal range of motion, supple without lymphadenopathy LUNGS: Breath sounds clear to auscultation bilaterally and equal. No wheezes rales or rhonchi. HEART: Regular rate and rhythm without murmurs ABDOMEN: Soft, nontender, normoactive bowel sounds. No guarding, no rebound. No masses appreciated. EXTREMITIES: Normal range of motion, no pitting or edema. No cyanosis. BACK: No midline tenderness. Left parapsinal tenderness. Tenderness over left SI joint. NEUROLOGICAL: Cranial nerves grossly intact. Normal speech, normal gait. Normal sensory and motor exams. PSYCH: Anxious mood. SKIN: Warm, Dry, normal turgor, no rashes or lesions noted. Course - Re-evaluation Re-evalutation: Patient with acute on chronic low back pain. He is now having difficulty urinating and stooling. Will obtain an MRI to assess for cord compression especially with history of possible IVDA. Patient provided with Decadron, Toradol and Valium with some relief of his symptoms. Looking through prior records, patient has had an heroin overdose in the past, so we will be cautious with narcotic use. MRI does not show any signs of cord compression at this time. Provided patient with a copy of his MRI report instructions to follow-up with his primary care physician and pain management at [facility]. - Vital Signs Vital signs: Temp Pulse Resp BP Pulse Ox 98.1 F 50 L 20 154/53 H 100 11/02/17 05:03 11/02/17 05:03 11/02/17 05:03 11/02/17 05:03 11/02/17 05:03 - Laboratory Result Diagrams: 11/02/17 06:30 11/02/17 06:30 Laboratory results interpreted by me: 11/02/17 06:30 WBC 10.8 H RDW 14.2 H - Diagnostic Test Radiology reviewed: Image reviewed, Reports reviewed Radiology results interpreted by me: MRI [place]: small disc herniation L4-5. Annular fissure L5-S1. Discharge - Discharge Clinical Impression: Low back pain Qualifiers: Chronicity: chronic Back pain laterality: left Sciatica presence: with sciatica Sciatica laterality: sciatica of left side Qualified Code(s): M54.42 - Lumbago with sciatica, left side; G89.29 - Other chronic pain; G89.29 - Other chronic pain Condition: Stable Disposition: HOME, SELF-CARE Additional Instructions: Your MRI does not show any evidence of an emergent condition. You must follow- up with your primary care physician and pain management at [facility]. Continue the medications that you are on. LOW BACK PAIN: Three out of every four people will have an episode of disabling back pain during their lifetime. Most commonly the pain is due to straining of the muscles and ligaments in the low back. Usual treatment includes: (1) Rest on a firm surface. Avoid lying on your stomach. (2) Ice pack the painful area. After a few days, gentle heat may be used intermittently to relax the area, or ice packs can be continued. (3) Medication may be needed -- muscle relaxers and antiinflammatory medicines are commonly used. (4) As the back improves, exercises are prescribed to strengthen the back and abdominal muscles. Your doctor will advise you on the proper care for your back at each stage in your recovery. You may be better in a few days -- or healing may take several weeks. If new symptoms of a "herniated disc" (radiation of pain, numbness, or tingling down the back of the leg or weakness in the leg) occur, you should be re-examined. Further testing may be necessary. PAIN MEDICATION INJECTION: You have received an injection of a pain medication. You should experience significant pain relief within 45 minutes. If this injection was a narcotic -- it will impair your judgement, slow your reaction time and make you sleepy (as well as relieve your pain). Narcotics also can cause nausea. You should not drive, work with machinery, or perform any task requiring mental alertness until all effects of the medication are gone -- six to eight hours. Do not take any alcohol, or sedatives, and do not take any other medication without checking with your physician. MUSCLE RELAXERS: Muscle relaxing medications are usually prescribed for acute muscle spasm or injury to the neck and back. They are often combined with antiinflammatory pain medication for increased relief. You may stop the muscle relaxer when the pain and stiffness have improved. Start the medication again if spasms recur. Muscle relaxers may cause drowsiness, especially with the first dose. Do not operate machinery or drive while under the effects of the medication. Most muscle relaxers last up to 24 hours. Do not combine the medication with alcohol. ICE PACKS: Apply ice packs frequently against the painful area. Many different schedules are recommended, such as "20 minutes on, 20 minutes off" or "one hour ice, two hours rest." If you need to work, you may need to go longer between ice treatments. You should plan to have the area ice packed AT LEAST one fourth of the time. The ice should be applied over the wrap, tape, or splint, or over a layer of cloth -- not directly against the skin. Some ice bags have a built-in cloth and can be put directly on the skin. WARM PACKS: After approximately two days, apply gentle heat (such as a heating pad or hot water bottle) for about 20 to 30 minutes about every two hours -- at least four times daily. Warmth and elevation will help you make a more rapid recovery , and will ease the pain considerably. Do not use HOT heat, and never apply heat for longer than 30 minutes. The continuous heat can invisibly damage skin and muscles -- even when no burn is seen on the surface. Damaged muscles can make you MORE sore. FOLLOW-UP CARE: If you have been referred to a physician for follow-up care, call the physician s office for an appointment as you were instructed or within the next two days. If you experience worsening or a significant change in your symptoms, notify the physician immediately or return to the Emergency Department at any time for re-evaluation. Forms: Elevated Blood Pressure Referrals: AUDREY DALTON MD [ACTIVE STAFF] - Follow up as needed
[2017-11-02 06:38] LABS: ABSOLUTE BASOPHILS # (AUTO) 0.1 10^3/uL (0.0-0.2); ABSOLUTE EOSINOPHILS # (AUTO) 0.1 10^3/uL (0.0-0.6); ABSOLUTE LYMPHOCYTES (AUTO) 3.1 10^3/uL (0.5-4.7); ABSOLUTE MONOCYTES (AUTO) 0.7 10^3/uL (0.1-1.4); ABSOLUTE NEUT (AUTO) 6.8 10^3/uL (1.7-8.2); BASOPHILS % (AUTO) 1.1 % (0-2); HEMOGLOBIN 13.6 g/dL (13.5-17.0); LYMPHOCYTES % (AUTO) 28.7 % (13-45); MEAN CORPUSCULAR HEMOGLOBIN 30.4 pg (27.0-33.4); MEAN CORPUSCULAR HGB CONC 33.1 g/dL (32.0-36.0); MEAN CORPUSCULAR VOLUME 92 fl (80-97); MONOCYTES % (AUTO) 6.6 % (3-13); PLATELET COUNT 303 10^3/uL (150-450); RED BLOOD COUNT 4.47 10^6/uL (4.35-5.55); RED CELL DISTRIBUTION WIDTH 14.2 % (11.5-14.0); SEGMENTED NEUTROPHILS % (AUTO) 62.6 % (42-78); TOTAL CELLS COUNTED % (AUTO) 100 %; WHITE BLOOD COUNT 10.8 10^3/uL (4.0-10.5)
[2017-11-02 07:12] LABS: ALANINE AMINOTRANSFERASE 26 U/L (21-72); ALKALINE PHOSPHATASE 59 U/L (38-126); ANION GAP 10 (5-19); ASPARTATE AMINO TRANSFERASE 17 U/L (17-59); BILIRUBIN,DIRECT 0.4 mg/dL (0.0-0.4); BILIRUBIN,TOTAL 0.5 mg/dL (0.2-1.3); BLOOD UREA NITROGEN 9 mg/dL (7-20); C-REACTIVE PROTEIN 6.4 mg/L (<10.0); CALCIUM 10.2 mg/dL (8.4-10.2); CARBON DIOXIDE 28 mmol/L (22-30); CHLORIDE 106 mmol/L (98-107); GLUCOSE 86 mg/dL (75-110); POTASSIUM 4.5 mmol/L (3.6-5.0); SODIUM 143.9 mmol/L (137-145); TOTAL PROTEIN 6.3 g/dL (6.3-8.2)
[2017-11-02 07:16] LABS: ERYTHROCYTE SEDIMENTATION RATE 7 mm/hr (0-15)
[2017-11-02] MEDS ORDERED: KETAMINE HCL INJ 500 MG/10 ML VIAL IV ONE (08:15)
[2017-11-02] MEDS ORDERED: LIDOCAINE 5% (700 MG) TRANSDERMAL ADH..PATCH TP ONE (08:24)
--- NOTE | 2017-11-02 09:30 | RADIOLOGY REPORT (SQ) ---
EXAM DESCRIPTION: MRI LUMBAR SPINE WITHOUT COMPLETED DATE/TIME: 11/02/2017 9:06 am REASON FOR STUDY: back pain, difficulty urine and stool, Hx IVDA COMPARISON: 07/23/2015 TECHNIQUE: Sagittal and Axial imaging includes T1, T2, STIR and gradient echo sequences. Coronal T2/ HASTE imaging. LIMITATIONS: Patient movement in the scanner. FINDINGS: VISUALIZED UPPER ABDOMEN: Limited evaluation. No acute or suspicious findings suggested. SEGMENTATION: No transitional anatomy. The lowest well-developed disc space is labeled L5-S1. ALIGNMENT: Anatomic. VERTEBRAE: Intact. BONE MARROW: Normal. No marrow replacement or reactive changes. DISC SIGNAL: Desiccation L4- 5 and L5-S1. POSTERIOR ELEMENTS: Intact. HARDWARE: None in the spine. CORD AND CONUS: Normal in size and signal intensity. Conus at the appropriate level. SOFT TISSUES: No aortic aneurysm seen. No bulky retroperitoneal adenopathy or mass. No paraspinal mas s or fluid. L1-L2: No significant spinal stenosis or exit foraminal stenosis. L2-L3: No significant spinal stenosis or exit foraminal stenosis. L3-L4: No significant spinal stenosis or exit foraminal stenosis. L4-L5: Ventral impression on the thecal sac due to small central disc herniation. L5-S1: Ventral impression on the thecal sac due to central annular fissure. LOWER THORACIC: Incompletely imaged. No stenosis seen. SACRUM: Visualized upper sacrum intact. OTHER: No other significant findings. IMPRESSION: Small disc herniation L4-5. Annular fissure L5-S1. TECHNICAL DOCUMENTATION: JOB ID: [id number] [employer]- All Rights Reserved
[2017-11-02 10:19] VITALS: BP 124/80
== END 2017-11-02 10:18 | disposition home or self-care (01) ==
LOC: ER 04:55
DX: M51.16 Intervertebral disc disorders with radiculopathy, lumbar region (principal); G89.29 Other chronic pain; Z79.899 Other long term (current) drug therapy; R39.9 Unspecified symptoms and signs involving the genitourinary system; R19.8 Other specified symptoms and signs involving the digestive system and abdomen
CPT/HCPCS: 99284; 96372; 96374; 36415; 85025; 85652; 86140; 80053; 72148; J3360; J3490; J1885; J1100

== ENCOUNTER 2020-03-25 17:26 | Inpatient (IN) | payer OTHER ==
[2020-03-25] MEDS ORDERED: RINGERS LACTATED IV ONE (18:04)
[2020-03-25] MEDS ORDERED: VANCOMYCIN HCL INJ 1000 MG VIAL IV ONE (18:04)
[2020-03-25] MEDS ORDERED: AZTREONAM INJ 1 GM VIAL IV ONE (18:04)
[2020-03-25] MEDS ORDERED: ACETAMINOPHEN 325 MG TABLET PO ONE (18:04)
[2020-03-25 18:14] LABS: ABSOLUTE MONOCYTES (AUTO) 0.6 10^3/uL (0.1-1.4); ABSOLUTE NEUT (AUTO) 9.1 10^3/uL (1.7-8.2); BASOPHILS % (AUTO) 0.2 % (0-2); HEMATOCRIT 43.6 % (37.9-51.0); HEMOGLOBIN 15.1 g/dL (13.5-17.0); LYMPHOCYTES % (AUTO) 9.5 % (13-45); MEAN CORPUSCULAR HEMOGLOBIN 31.6 pg (27.0-33.4); MEAN CORPUSCULAR HGB CONC 34.7 g/dL (32.0-36.0); MEAN CORPUSCULAR VOLUME 91 fl (80-97); MONOCYTES % (AUTO) 5.3 % (3-13); PLATELET COUNT 240 10^3/uL (150-450); RED BLOOD COUNT 4.79 10^6/uL (4.35-5.55); RED CELL DISTRIBUTION WIDTH 13.9 % (11.5-14.0); TOTAL CELLS COUNTED % (AUTO) 100 %; VENOUS BLOOD BASE EXCESS -0.3 mmol/L; VENOUS BLOOD HCO3 21.6 mmol/L (20-32); VENOUS BLOOD PCO2 28.4 mmHg (35-63); VENOUS BLOOD PH 7.5 (7.30-7.42); WHITE BLOOD COUNT 10.7 10^3/uL (4.0-10.5)
[2020-03-25 18:19] LABS: PROTHROMBIN TIME 13.2 SEC (11.4-15.4)
[2020-03-25 18:33] LABS: ALBUMIN 4.2 g/dL (3.5-5.0); ALKALINE PHOSPHATASE 68 U/L (38-126); ANION GAP 11 (5-19); ASPARTATE AMINO TRANSFERASE 45 U/L (17-59); BILIRUBIN,TOTAL 0.5 mg/dL (0.2-1.3); BLOOD UREA NITROGEN 16 mg/dL (7-20); CALCIUM 9.2 mg/dL (8.4-10.2); CARBON DIOXIDE 22 mmol/L (22-30); CHLORIDE 97 mmol/L (98-107); GLUCOSE 111 mg/dL (75-110); POTASSIUM 3.7 mmol/L (3.6-5.0); TOTAL PROTEIN 7.2 g/dL (6.3-8.2)
[2020-03-25] MEDS ORDERED: ONDANSETRON HCL INJ/PF 4 MG/2 ML SDV IV ONE (18:43)
--- NOTE | 2020-03-25 18:48 | ER Document Report ---
ED General - General Chief Complaint: Fever Stated Complaint: ARM PAIN/DIARRHEA Time Seen by Provider: 03/25/20 17:48 Primary Care Provider: [facility] [Primary Care Provider] - Follow up as needed TRAVEL OUTSIDE OF THE [place] IN LAST 30 DAYS: No - HPI Notes: Chief complaint: Redness and swelling of right arm, fever, nausea/vomiting, diarrhea and shortness of breath HPI: 39-year-old male with history of IVDU injecting heroin for several years developed redness pain and swelling of right forearm area of approximately 5 days ago. He does not believe that there is a needle broken off in the skin. He is subsequently developed progressive systemic symptoms including fever, chills, nausea, vomiting, diarrhea and shortness of breath. Patient has had problems with chronic low back pain. He has been treated for kidney stone in the past and required stenting. He has had a previous appendectomy. He denies any other hospitalizations. Patient denies abuse of alcohol. - Related Data Allergies/Adverse Reactions: amoxicillin trihydrate [From Amoxil] Allergy (Verified 10/29/17 13:59) Home Medications: unsure of name Past Medical History - General Information source: Patient, [facility] Records - Social History Smoking Status: Current Every Day Smoker Frequency of alcohol use: Social Drug Abuse: Heroin, Marijuana, Methamphetamine Lives with: Homeless Family History: Reviewed & Not Pertinent Patient has suicidal ideation: No Patient has homicidal ideation: No Pulmonary Medical History: Reports: None EENT Medical History: Reports: None Neurological Medical History: Reports: None Endocrine Medical History: Reports: None Renal/ Medical History: Reports: Hx Kidney Stones. Denies: Hx Peritoneal Dialysis Malignancy Medical History: Reports None GI Medical History: Reports: None Musculoskeletal Medical History: Reports Other - Chronic low back pain Skin Medical History: Reports None Psychiatric Medical History: Reports: Hx Depression - PTSD, Hx Post Traumatic Stress Disorder Past Surgical History: Reports: Hx Appendectomy, Hx Genitourinary Surgery - kidney stent, stone removal, Hx Orthopedic Surgery - right ankle, Hx Tonsillectomy - Immunizations Hx Diphtheria, Pertussis, Tetanus Vaccination: Yes Review of Systems - Review of Systems Notes: Constitutional: As per HPI. HENT: Negative for sore throat. Eyes: Negative for visual changes. Cardiovascular: Negative for chest pain. Respiratory: As per HPI. Gastrointestinal: As per HPI. Genitourinary: Negative for dysuria. Musculoskeletal: Chronic back pain. Skin: Negative for rash. Neurological: Negative for headaches, focal weakness or numbness. 10 point ROS negative except as marked above and in HPI. Physical Exam - Vital signs Vitals: Temp 102.4 F H 03/25/20 17:33 - Notes Notes: GENERAL: Well-developed well-nourished male approximately stated age who appears acutely ill. He appears restless and uncomfortable. SKIN: Patient has an area of cellulitis with redness and swelling over the volar aspect of the proximal forearm on the right. There is no fluctuance and no open wound appreciated. I do not palpate any foreign body in this area. Good turgor. HEAD: Normocephalic atraumatic. EYES: PERRLA. EOMI. Conjunctivae and sclerae clear. EARS: CANALS AND TMS CLEAR. NOSE: CLEAR. MOUTH: Moist mucosa. Good dentition. No stridor or edema. No drooling. NECK: Supple. No masses or thyromegaly. No adenopathy. Carotids 2+ without bruits. No JVD. BACK: Symmetrical without tenderness. CHEST: Respirations unlabored. Breath sounds clear and symmetrical. HEART: Tachycardic regular rhythm. No murmur gallop or rub. ABDOMEN: Soft nontender without masses, organomegaly or rebound. Bowel sounds normally active. No bruits. GENITALIA: Deferred. EXTREMITIES: No lower extremity edema. No calf tenderness. Cap refill less than 1.5 seconds. Dorsalis pedis and posterior tibial pulses 3+ and symmetrical. NEUROLOGICAL: GCS 15. Alert and oriented x3. Normal gait. Fluent speech. Cranial nerves II through XII intact. Sensorimotor and cerebellar normal. Normal tone. PSYCHIATRIC: Anxious affect. Course - Re-evaluation Re-evalutation: 03/25/20 18:51 Sepsis work-up initiated. This appears to be coming from cellulitis of his right forearm area. We are going to obtain an x-ray to be sure there is no rad iopaque foreign body present. His lactate is 1.5. His white count is mildly elevated. Blood cultures have been drawn. He reports a significant allergy to amoxicillin. I am going to give him aztreonam and vancomycin empirically IV. Chest x-ray has been requested. He is probably having opiate withdrawal as well. After get the remainder of his studies back I will speak with the hospitalist regarding admission. 03/25/20 21:32 Patient has been accepted by Dr. Javier Pascal for admission to telemetry on hospitalist service. - Vital Signs Vital signs: Temp Pulse Resp BP Pulse Ox 102.2 F H 25 H 124/63 99 03/25/20 21:25 03/25/20 21:19 03/25/20 21:19 03/25/20 21:19 - Laboratory Result Diagrams: 03/25/20 17:55 03/25/20 17:55 Laboratory results interpreted by me: 03/25/20 03/25/20 03/25/20 17:55 17:55 17:55 WBC 10.7 H Lymph % (Auto) 9.5 L Absolute Neuts (auto) 9.1 H Seg Neutrophils % 85.0 H VBG pH 7.50 H VBG pCO2 28.4 L Sodium 129.5 L Chloride 97 L Glucose 111 H Discharge - Discharge Clinical Impression: Right forearm cellulitis, Drug abuse, IV Condition: Fair Disposition: ADMITTED INPATIENT Admitting Provider: Gwyn (Hospitalist) Unit Admitted: Telemetry Referrals: [facility] [Primary Care Provider] - Follow up as needed
--- NOTE | 2020-03-25 19:29 | RADIOLOGY REPORT (SQ) ---
EXAM DESCRIPTION: FOREARM RIGHT IMAGES COMPLETED DATE/TIME: 03/25/2020 7:14 pm REASON FOR STUDY: cellulitis, r/o FB COMPARISON: None. NUMBER OF VIEWS: Two views. TECHNIQUE: Two radiographic images acquired of the right forearm, including elbow and wrist in at le ast one projection. LIMITATIONS: None. FINDINGS: MINERALIZATION: Normal. BONES: No acute fracture. No worrisome bone lesions. Mild olecranon enthesopathic changes. SOFT TISSUES: Volar proximal forearm soft tissue swelling. No radiopaque foreign body. OTHER: No other significant finding. IMPRESSION: Volar proximal forearm soft tissue swelling without radiopaque foreign body identified o r underlying acute osseous abnormality. TECHNICAL DOCUMENTATION: JOB ID: [id number] 2010 [employer]- All Rights Reserved Reading location - IP/workstation name: [email or web address]
--- NOTE | 2020-03-25 19:31 | RADIOLOGY REPORT (SQ) ---
EXAM DESCRIPTION: CHEST SINGLE VIEW IMAGES COMPLETED DATE/TIME: 03/25/2020 7:14 pm REASON FOR STUDY: sepsis COMPARISON: Chest radiographs 11/28/2013 EXAM PARAMETERS: NUMBER OF VIEWS: One view. TECHNIQUE: Single frontal radiographic view of the chest acquired. RADIATION DOSE: NA LIMITATIONS: None. FINDINGS: LUNGS AND PLEURA: Few ill-defined left lateral basilar airspace opacities. No pneumothora x or pleural effusion. MEDIASTINUM AND HILAR STRUCTURES: No masses. Contour normal. HEART AND VASCULAR STRUCTURES: Heart normal in size. Normal vasculature. BONES: No acute findings. HARDWARE: None in the chest. OTHER: No other significant finding. IMPRESSION: Few ill-defined left lateral basilar airspace opacities, which may represent a developin g infectious process in the acute setting. TECHNICAL DOCUMENTATION: JOB ID: [id number] 2010 [employer]- All Rights Reserved Reading location - IP/workstation name: [email or web address]
[2020-03-25] MEDS ORDERED: KETOROLAC TROMETHAMINE INJ/PF 30 MG/1 ML SDV IV ONE (21:36)
[2020-03-25 21:49] LABS: APPEARANCE,URINE CLEAR; BILIRUBIN,URINE NEGATIVE (NEGATIVE); COLOR,URINE YELLOW; GLUCOSE, URINE NEGATIVE (NEGATIVE); KETONES,URINE 20 mg/dL (NEGATIVE); PROTEIN,URINE 30 mg/dL (NEGATIVE); URINE SPECIFIC GRAVITY 1.013; UROBILINOGEN,URINE NEGATIVE mg/dL (<2.0)
[2020-03-25] MEDS ORDERED: MAG HYDROX/AL HYDROX/SIMETH SUSP 30 ML UDCUP PO PRN (21:49)
[2020-03-25] MEDS ORDERED: ACETAMINOPHEN 325 MG TABLET PO PRN (21:49)
[2020-03-25 21:53] LABS: URINE AMPHETAMINES SCREEN NEGATIVE; URINE BARBITURATES SCREEN NEGATIVE; URINE BENZODIAZEPINES SCREEN NEGATIVE; URINE COCAINE SCREEN NEGATIVE; URINE MARIJUANA (THC) SCREEN NEGATIVE; URINE METHADONE SCREEN NEGATIVE; URINE PHENCYCLIDINE SCREEN NEGATIVE
[2020-03-25] MEDS ORDERED: CEFTRIAXONE 1 GM/D5W RTU 1 GM/50 ML RTUPB IV SCH (22:00)
[2020-03-25] MEDS ORDERED: VANCOMYCIN HCL 0 MG in DEXTROSE 5%-WATER 250 ML IV NR (22:00)
[2020-03-25] MEDS ORDERED: VANCOMYCIN HCL INJ 1000 MG VIAL IV PRN (22:33)
--- NOTE | 2020-03-25 23:23 | EKG REPORT ---
SEVERITY:- ABNORMAL ECG - SINUS TACHYCARDIA COLIN, CONSIDER BIATRIAL ABNORMALITIES NONSPECIFIC T ABNORMALITIES, DIFFUSE LEADS : Confirmed by: Prince Shipman 25-Mar-2020 23:22:21
[2020-03-25] MEDS: NORMAL SALINE 1000 ML 1,000 ML IV PRN (23:51)
[2020-03-25] MEDS: HEPARIN SOD (PORCINE) 5,000 UNIT/ML 1 ML VIAL SUBCUT SCH (23:52)
[2020-03-26] MEDS ORDERED: VANCOMYCIN HCL 1,000 MG in DEXTROSE 5%-WATER 250 ML IV ONE ×2
[2020-03-26] MEDS ORDERED: VANCOMYCIN HCL INJ 1000 MG VIAL ONE (00:19)
[2020-03-26] MEDS: NORMAL SALINE 1000 ML 1,000 ML IV PRN ×2 (03:48→08:27)
[2020-03-26] MEDS: KETOROLAC TROMETHAMINE INJ/PF 30 MG/1 ML SDV IV PRN ×4 (03:49→22:54)
--- NOTE | 2020-03-26 03:56 | PDOC CONSULTATION ---
Consultation Consult Date: 03/26/20 Provider Consulted: BARAK COBOS Consult reason:: Cellulitis right arm History of Present Illness Admission Date/PCP: 03/25/20 21:[facility] History of Present Illness: EDER FATIMA is a 39 year old male Presents emergency department complaining of right arm swelling, redness, and no drainage following serial attempts at IV injection of heroin. Patient seen the emergency department found to have cellulitis admitted to the hospital service. X-ray of the right arm revealed no foreign body. Surgery was consulted and advised to management. Past Medical History Pulmonary Medical History: Reports: None EENT Medical History: Reports: None Neurological Medical History: Reports: None Endocrine Medical History: Reports: None Malignancy Medical History: Reports: None GI Medical History: Reports: None Musculoskeltal Medical History: Reports: Other - Chronic low back pain Skin Medical History: Reports: None Psychiatric Medical History: Reports: Depression - PTSD, Post Traumatic Stress Disorder Past Surgical History Past Surgical History: Reports: Appendectomy, Orthopedic Surgery - right ankle, Tonsillectomy Social History Information Source: Patient Lives with: Homeless Smoking Status: Current Every Day Smoker Cigarettes Packs Per Day: 1 Frequency of Alcohol Use: Social Drugs: Heroin, Marijuana, Methadone Family History Family History: None, Reviewed & Not Pertinent Parental Family History Reviewed: No Children Family History Reviewed: No Sibling(s) Family History Reviewed.: No Medication/Allergy Home Medications: Oxycodone HCl/Acetaminophen [Percocet 10-325 mg Tablet] 1 tab PO Q6H PRN 11/28/13 Hydrocodone/Acetaminophen [[place] 5-325 Tablet] 1 each PO Q4 PRN #8 tablet 05/31/17 Naproxen [Naprosyn 250 Nmg Tablet] 1 tab PO BID #14 tablet 05/31/17 Tamsulosin HCl [Flomax 0.4 mg Cap.sr] 0.4 mg PO DAILY #7 cap.sr.24h 05/31/17 Cyclobenzaprine HCl [Flexeril 5 mg Tablet] 1 - 2 tab PO TID PRN #20 tablet 10/12/17 Prednisone [Deltasone 10 mg Tablet] 10 mg PO ASDIR PRN #21 tablet 10/12/17 Ketorolac Tromethamine [Toradol 10 mg Tablet] 10 mg PO Q8HP PRN #24 tablet 10/24/17 Methocarbamol [Robaxin 750 mg Tablet] 750 mg PO Q6 #20 tablet 10/24/17 Allergies/Adverse Reactions: amoxicillin trihydrate [From Amoxil] Allergy (Verified 10/29/17 13:59) Review of Systems ROS unobtainable: Other Constitutional: PRESENT: as per HPI Ears: ABSENT: hearing changes Cardiovascular: ABSENT: chest pain, dyspnea on exertion, edema, orthropnea, palpitations Respiratory: ABSENT: cough, hemoptysis Musculoskeletal: ABSENT: joint swelling Neurological: ABSENT: abnormal gait, abnormal speech, confusion, dizziness, focal weakness, syncope Psychiatric: ABSENT: anxiety, depression, homidical ideation, suicidal ideation Physical Exam Vital Signs: Temp Pulse Resp BP Pulse Ox 100.1 F 75 17 118/83 99 03/25/20 23:51 03/25/20 23:51 03/25/20 23:51 03/25/20 23:51 03/25/20 23:51 Intake & Output 03/24/20 03/25/20 03/26/20 06:59 06:59 06:59 Intake Total 1038 Balance 1038 Weight 87.5 kg General appearance: PRESENT: mild distress Head exam: PRESENT: normocephalic Eye exam: PRESENT: EOMI Mouth exam: PRESENT: dry mucosa Neck exam: PRESENT: full ROM Respiratory exam: PRESENT: clear to auscultation sharron Cardiovascular exam: PRESENT: RRR Breast: PRESENT: Normal GI/Abdominal exam: PRESENT: soft Rectal exam: PRESENT: deferred Extremities exam: PRESENT: other - Generalized swelling of the right upper extremity particularly the antecubital fossa, tender, generalized erythema; no discrete ulcer, drainage site Musculoskeletal exam: PRESENT: ambulatory Neurological exam: PRESENT: oriented to person, oriented to place, oriented to time, oriented to situation Psychiatric exam: PRESENT: appropriate affect Results Laboratory Results: 03/25/20 17:55 03/25/20 17:55 03/25/20 03/25/20 03/25/20 17:55 17:55 17:55 WBC 10.7 H RBC 4.79 Hgb 15.1 Hct 43.6 MCV 91 MCH 31.6 MCHC 34.7 RDW 13.9 Plt Count 240 Seg Neutrophils % 85.0 H VBG pH 7.50 H VBG pCO2 28.4 L VBG HCO3 21.6 VBG Base Excess -0.3 Sodium 129.5 L Potassium 3.7 Chloride 97 L Carbon Dioxide 22 Anion Gap 11 BUN 16 Creatinine 1.18 Est GFR ( Amer) > 60 Glucose 111 H Lactic Acid Calcium 9.2 Total Bilirubin 0.5 AST 45 Alkaline Phosphatase 68 Total Protein 7.2 Albumin 4.2 Urine Color Urine Appearance Urine pH Ur Specific [place] Urine Protein Urine Glucose (UA) Urine Ketones Urine Blood Urine RBC (Auto) 03/25/20 03/25/20 03/25/20 17:55 21:10 21:28 WBC RBC Hgb Hct MCV MCH MCHC RDW Plt Count Seg Neutrophils % VBG pH VBG pCO2 VBG HCO3 VBG Base Excess Sodium Potassium Chloride Carbon Dioxide Anion Gap BUN Creatinine Est GFR ( Amer) Glucose Lactic Acid 1.3 1.2 Calcium Total Bilirubin AST Alkaline Phosphatase Total Protein Albumin Urine Color YELLOW Urine Appearance CLEAR Urine pH 6.0 Ur Specific [place] 1.013 Urine Protein 30 H Urine Glucose (UA) NEGATIVE Urine Ketones 20 H Urine Blood MODERATE H Urine RBC (Auto) 3 03/26/20 00:23 WBC RBC Hgb Hct MCV MCH MCHC RDW Plt Count Seg Neutrophils % VBG pH VBG pCO2 VBG HCO3 VBG Base Excess Sodium Potassium Chloride Carbon Dioxide Anion Gap BUN Creatinine Est GFR ( Amer) Glucose Lactic Acid 1.5 Calcium Total Bilirubin AST Alkaline Phosphatase Total Protein Albumin Urine Color Urine Appearance Urine pH Ur Specific [place] Urine Protein Urine Glucose (UA) Urine Ketones Urine Blood Urine RBC (Auto) Impressions: Chest X-Ray 03/25/20 18:05 IMPRESSION: Few ill-defined left lateral basilar airspace opacities, which may represent a developing infectious process in the acute setting. Forearm X-Ray 03/25/20 18:25 IMPRESSION: Volar proximal forearm soft tissue swelling without radiopaque foreign body identified or underlying acute osseous abnormality. Assessment & Plan - Diagnosis (1) Right forearm cellulitis Is this a current diagnosis for this admission?: Yes Plan: Pression: Acute cellulitis right upper extremity likely due to IV drug abuse; x- ray demonstrates no foreign body; rule out drainable fluid Recommendations: 1. Back bedside I performed a focused ultrasound of the right upper extremity. This demonstrated fluid around the cephalic vein in the antecubital fossa, but no focal abscess; the cephalic vein has thrombus from the antecubital region cephalad to the shoulder. 2. I recommend right arm elevation, intravenous antibiotics and reassessment; occasion for surgical intervention at this moment. 3. Discussed with Dr. Javier Pascal, hospitalist. (2) Drug abuse, IV Is this a current diagnosis for this admission?: Yes - Time Time Spent: 30 to 50 Minutes Smoking Cessation Education: over 10 minutes
--- NOTE | 2020-03-26 03:59 | Operative Report ---
Operative Report DATE OF SURGERY: 03/26/20 PREOPERATIVE DIAGNOSIS: 1. IV drug abuse right upper extremity. 2. Right upp er extremity cellulitis, acute POSTOPERATIVE DIAGNOSIS: Same with cutaneous and cubital fluid; thrombus in the the right cephalic vein OPERATION: Focused ultrasonography of the right upper extremity SURGEON: BARAK COBOS ANESTHESIA: Other - None TISSUE REMOVED OR ALTERED: None COMPLICATIONS: None ESTIMATED BLOOD LOSS: None INTRAOPERATIVE FINDINGS: See below PROCEDURE: The right extremity was examined. There is generalized cellulitis of the antecubital fossa, as well as the proximal distal forearm with swelling. Focused ultrasound of the right upper extremity performed with a variable frequency linear transducer. Edges were retained for the record. The findings are significant for subcutaneous edema but no focal abscess. There is fluid around the median cubital vein and the cephalic vein. The cephalic vein from the antecubital fossa proximally to the shoulder demonstrated occlusion of the vein lumen consistent with acute thrombus Patient tolerated procedure well. Results shared with hospitalist, Dr. Javier Pascal
--- NOTE | 2020-03-26 04:41 | PDOC H&P ---
History of Present Illness Admission Date/PCP: 03/25/20 21:[facility] [place] [facility] Patient complains of: Right arm pain and swelling History of Present Illness: DEER FATIMA is a 39 year old male with a past medical history of PTSD, chronic low back pain, polysubstance abuse of IV heroin, methamphetamine and cannabis smoking. He presents with 48 hours of swelling erythema and pain to his right antecubital area developing fever he presents the emergency department found to have leukocytosis, fever and inflammation described. No foreign body is discovered by imaging, he receives IV vancomycin and referred to the hospitalist for admission. Patient admits to heroin use weekly. He denies chest pain palpitations or shortness of breath. He does take regular medic ations but does not recall the names. Past Medical History Cardiac Medical History: Reports: None Pulmonary Medical History: Reports: None EENT Medical History: Reports: None Neurological Medical History: Reports: None Endocrine Medical History: Reports: None Malignancy Medical History: Reports: None GI Medical History: Reports: None Musculoskeltal Medical History: Reports: Other - Chronic low back pain Skin Medical History: Reports: None Psychiatric Medical History: Reports: Depression - PTSD, Post Traumatic Stress Disorder, Substance Abuse, Tobacco Dependency Past Surgical History Past Surgical History: Reports: Appendectomy, Orthopedic Surgery - right ankle, Tonsillectomy Social History Information Source: Patient Lives with: Homeless Smoking Status: Current Every Day Smoker Cigarettes Packs Per Day: 1 Frequency of Alcohol Use: Social Drugs: Heroin, Marijuana, Methadone, Other - Methamphetamine - Advance Directive Resuscitation Status: Full Code Family History Family History: Hypertension Parental Family History Reviewed: Yes Children Family History Reviewed: Yes Sibling(s) Family History Reviewed.: Yes Medication/Allergy Home Medications: Oxycodone HCl/Acetaminophen [Percocet 10-325 mg Tablet] 1 tab PO Q6H PRN 11/28/13 Hydrocodone/Acetaminophen [[place] 5-325 Tablet] 1 each PO Q4 PRN #8 tablet 05/31/17 Naproxen [Naprosyn 250 Nmg Tablet] 1 tab PO BID #14 tablet 05/31/17 Tamsulosin HCl [Flomax 0.4 mg Cap.sr] 0.4 mg PO DAILY #7 cap.sr.24h 05/31/17 Cyclobenzaprine HCl [Flexeril 5 mg Tablet] 1 - 2 tab PO TID PRN #20 tablet 10/12/17 Prednisone [Deltasone 10 mg Tablet] 10 mg PO ASDIR PRN #21 tablet 10/12/17 Ketorolac Tromethamine [Toradol 10 mg Tablet] 10 mg PO Q8HP PRN #24 tablet 10/24/17 Methocarbamol [Robaxin 750 mg Tablet] 750 mg PO Q6 #20 tablet 10/24/17 Allergies/Adverse Reactions: amoxicillin trihydrate [From Amoxil] Allergy (Verified 10/29/17 13:59) Review of Systems Constitutional: ABSENT: chills, fever(s), headache(s), weight gain, weight loss Eyes: ABSENT: visual disturbances Ears: ABSENT: hearing changes Cardiovascular: ABSENT: chest pain, dyspnea on exertion, edema, orthropnea, palpitations Respiratory: ABSENT: cough, hemoptysis Gastrointestinal: ABSENT: abdominal pain, constipation, diarrhea, hematemesis, hematochezia, nausea, vomiting Genitourinary: ABSENT: dysuria, hematuria Musculoskeletal: ABSENT: joint swelling Integumentary: ABSENT: rash, wounds Neurological: ABSENT: abnormal gait, abnormal speech, confusion, dizziness, focal weakness, syncope Psychiatric: ABSENT: anxiety, depression, homidical ideation, suicidal ideation Endocrine: ABSENT: cold intolerance, heat intolerance, polydipsia, polyuria Hematologic/Lymphatic: ABSENT: easy bleeding, easy bruising Physical Exam Vital Signs: Temp Pulse Resp BP Pulse Ox 100.1 F 95 17 118/83 99 03/25/20 23:51 03/26/20 02:00 03/25/20 23:51 03/25/20 23:51 03/25/20 23:51 Intake & Output 03/24/20 03/25/20 03/26/20 11:59 11:59 11:59 Intake Total 1288 Balance 1288 Weight 87.5 kg General appearance: PRESENT: no acute distress, well-developed, well-nourished Head exam: PRESENT: atraumatic, normocephalic Eye exam: PRESENT: conjunctiva pink, EOMI, PERRLA. ABSENT: scleral icterus Ear exam: PRESENT: normal external ear exam Mouth exam: PRESENT: moist, tongue midline Neck exam: ABSENT: carotid bruit, JVD, lymphadenopathy, thyromegaly Respiratory exam: PRESENT: clear to auscultation sharron. ABSENT: rales, rhonchi, wheezes Cardiovascular exam: PRESENT: RRR. ABSENT: diastolic murmur, rubs, systolic murmur Pulses: PRESENT: normal dorsalis pedis pul Vascular exam: PRESENT: normal capillary refill GI/Abdominal exam: PRESENT: normal bowel sounds, soft. ABSENT: distended, guarding, mass, organolmegaly, rebound, tenderness Rectal exam: PRESENT: deferred Extremities exam: PRESENT: full ROM, tenderness - +2 edema to the right arm, circumferential induration and erythema from the mid forearm to mid upper arm, no obvious abscess or open site, +1 edema. ABSENT: calf tenderness, clubbing, pedal edema Neurological exam: PRESENT: alert, awake, oriented to person, oriented to place, oriented to time, oriented to situation, CN II-XII grossly intact. ABSENT: motor sensory deficit Psychiatric exam: PRESENT: appropriate affect, normal mood. ABSENT: homicidal i deation, suicidal ideation Skin exam: PRESENT: dry, intact, warm, other - +2 edema to the right arm, circumferential induration and erythema from the mid forearm to mid upper arm, no obvious abscess or open site. ABSENT: cyanosis, rash Results Laboratory Results: 03/25/20 17:55 03/25/20 17:55 03/25/20 03/25/20 03/25/20 17:55 17:55 17:55 WBC 10.7 H RBC 4.79 Hgb 15.1 Hct 43.6 MCV 91 MCH 31.6 MCHC 34.7 RDW 13.9 Plt Count 240 Seg Neutrophils % 85.0 H VBG pH 7.50 H VBG pCO2 28.4 L VBG HCO3 21.6 VBG Base Excess -0.3 Sodium 129.5 L Potassium 3.7 Chloride 97 L Carbon Dioxide 22 Anion Gap 11 BUN 16 Creatinine 1.18 Est GFR ( Amer) > 60 Glucose 111 H Lactic Acid Calcium 9.2 Total Bilirubin 0.5 AST 45 Alkaline Phosphatase 68 Total Protein 7.2 Albumin 4.2 Urine Color Urine Appearance Urine pH Ur Specific [place] Urine Protein Urine Glucose (UA) Urine Ketones Urine Blood Urine RBC (Auto) 03/25/20 03/25/20 03/25/20 17:55 21:10 21:28 WBC RBC Hgb Hct MCV MCH MCHC RDW Plt Count Seg Neutrophils % VBG pH VBG pCO2 VBG HCO3 VBG Base Excess Sodium Potassium Chloride Carbon Dioxide Anion Gap BUN Creatinine Est GFR ( Amer) Glucose Lactic Acid 1.3 1.2 Calcium Total Bilirubin AST Alkaline Phosphatase Total Protein Albumin Urine Color YELLOW Urine Appearance CLEAR Urine pH 6.0 Ur Specific [place] 1.013 Urine Protein 30 H Urine Glucose (UA) NEGATIVE Urine Ketones 20 H Urine Blood MODERATE H Urine RBC (Auto) 3 03/26/20 00:23 WBC RBC Hgb Hct MCV MCH MCHC RDW Plt Count Seg Neutrophils % VBG pH VBG pCO2 VBG HCO3 VBG Base Excess Sodium Potassium Chloride Carbon Dioxide Anion Gap BUN Creatinine Est GFR ( Amer) Glucose Lactic Acid 1.5 Calcium Total Bilirubin AST Alkaline Phosphatase Total Protein Albumin Urine Color Urine Appearance Urine pH Ur Specific [place] Urine Protein Urine Glucose (UA) Urine Ketones Urine Blood Urine RBC (Auto) Impressions: Chest X-Ray 03/25/20 18:05 IMPRESSION: Few ill-defined left lateral basilar airspace opacities, which may represent a developing infectious process in the acute setting. Forearm X-Ray 03/25/20 18:25 IMPRESSION: Volar proximal forearm soft tissue swelling without radiopaque foreign body identified or underlying acute osseous abnormality. Assessment and Plan - Diagnosis (1) Drug abuse, IV Is this a current diagnosis for this admission?: Yes Plan: IV heroin use weekly only and as such do not anticipate vanna opiate withdrawal. Systolic murmur with likely endocarditis, follow-up 2D echo (2) Right forearm cellulitis Is this a current diagnosis for this admission?: Yes Plan: Complicated by IV drug use, vancomycin and Rocephin initiated (3) Endocarditis Qualifiers: Endocarditis type: infective Infective endocarditis organism: bacterial Chronicity: acute Qualified Code(s): I33.0 - Acute and subacute infective endocarditis Is this a current diagnosis for this admission?: Yes Plan: Vancomycin initiated, follow-up 2D echo - Time Time Spent with patient: 25-34 minutes - Inpatient Certification Medical Necessity: Need Close Monitoring Due to Risk of Patient Decompensation
[2020-03-26] MEDS ORDERED: ASPIRIN 325 MG TABLET PO ONE (04:45)
[2020-03-26] MEDS: HEPARIN SOD (PORCINE) 5,000 UNIT/ML 1 ML VIAL SUBCUT SCH ×3 (05:23→21:49)
[2020-03-26 05:42] LABS: ABSOLUTE MONOCYTES (AUTO) 0.6 10^3/uL (0.1-1.4); ABSOLUTE NEUT (AUTO) 6.9 10^3/uL (1.7-8.2); BASOPHILS % (AUTO) 0.3 % (0-2); HEMATOCRIT 37.7 % (37.9-51.0); HEMOGLOBIN 13.3 g/dL (13.5-17.0); LYMPHOCYTES % (AUTO) 11.5 % (13-45); MEAN CORPUSCULAR HEMOGLOBIN 31.8 pg (27.0-33.4); MEAN CORPUSCULAR HGB CONC 35.2 g/dL (32.0-36.0); MEAN CORPUSCULAR VOLUME 90 fl (80-97); MONOCYTES % (AUTO) 6.6 % (3-13); PLATELET COUNT 168 10^3/uL (150-450); RED BLOOD COUNT 4.17 10^6/uL (4.35-5.55); RED CELL DISTRIBUTION WIDTH 13.8 % (11.5-14.0); SEGMENTED NEUTROPHILS % (AUTO) 81.6 % (42-78); TOTAL CELLS COUNTED % (AUTO) 100 %; WHITE BLOOD COUNT 8.5 10^3/uL (4.0-10.5)
[2020-03-26 06:03] LABS: ANION GAP 5 (5-19); BLOOD UREA NITROGEN 13 mg/dL (7-20); CALCIUM 8.1 mg/dL (8.4-10.2); CARBON DIOXIDE 21 mmol/L (22-30); CHLORIDE 106 mmol/L (98-107); GLUCOSE 119 mg/dL (75-110); POTASSIUM 3.5 mmol/L (3.6-5.0)
--- NOTE | 2020-03-26 08:57 | PDOC PROGRESS REPORT ---
Subjective Progress Note for:: 03/26/20 Subjective:: feels ok, sleepy Reason For Visit: IVDU,ARM CELLULITIS Physical Exam Vital Signs: Temp Pulse Resp BP Pulse Ox 99.2 F 94 17 118/83 99 03/26/20 06:20 03/26/20 07:00 03/25/20 23:51 03/25/20 23:51 03/25/20 23:51 Intake & Output 03/25/20 03/26/20 03/27/20 06:59 06:59 06:59 Intake Total 1528 3790 Balance 1528 3790 Weight 87.5 kg General appearance: PRESENT: no acute distress Head exam: PRESENT: normocephalic Eye exam: PRESENT: EOMI Ear exam: PRESENT: normal external ear exam Mouth exam: PRESENT: moist Neck exam: PRESENT: full ROM Respiratory exam: PRESENT: clear to auscultation sharron Cardiovascular exam: PRESENT: RRR Pulses: PRESENT: normal radial pulses, +2 pedal pulses bilateral Vascular exam: PRESENT: normal capillary refill Breast: PRESENT: Normal GI/Abdominal exam: PRESENT: soft Rectal exam: PRESENT: deferred Extremities exam: PRESENT: other - right forearm celluliltis no obvious abscess., Neurological exam: PRESENT: alert Psychiatric exam: PRESENT: appropriate affect Skin exam: PRESENT: dry - right forearm cellulitis no obvious abscess to drain on ultz recommend cont iv abx. Results Laboratory Results: 03/26/20 05:31 03/26/20 05:31 03/25/20 03/25/20 03/25/20 17:55 17:55 17:55 WBC 10.7 H RBC 4.79 Hgb 15.1 Hct 43.6 MCV 91 MCH 31.6 MCHC 34.7 RDW 13.9 Plt Count 240 Seg Neutrophils % 85.0 H VBG pH 7.50 H VBG pCO2 28.4 L VBG HCO3 21.6 VBG Base Excess -0.3 Sodium 129.5 L Potassium 3.7 Chloride 97 L Carbon Dioxide 22 Anion Gap 11 BUN 16 Creatinine 1.18 Est GFR ( Amer) > 60 Glucose 111 H Lactic Acid Calcium 9.2 Total Bilirubin 0.5 AST 45 Alkaline Phosphatase 68 Total Protein 7.2 Albumin 4.2 Urine Color Urine Appearance Urine pH Ur Specific [place] Urine Protein Urine Glucose (UA) Urine Ketones Urine Blood Urine RBC (Auto) 03/25/20 03/25/20 03/25/20 17:55 21:10 21:28 WBC RBC Hgb Hct MCV MCH MCHC RDW Plt Count Seg Neutrophils % VBG pH VBG pCO2 VBG HCO3 VBG Base Excess Sodium Potassium Chloride Carbon Dioxide Anion Gap BUN Creatinine Est GFR ( Amer) Glucose Lactic Acid 1.3 1.2 Calcium Total Bilirubin AST Alkaline Phosphatase Total Protein Albumin Urine Color YELLOW Urine Appearance CLEAR Urine pH 6.0 Ur Specific [place] 1.013 Urine Protein 30 H Urine Glucose (UA) NEGATIVE Urine Ketones 20 H Urine Blood MODERATE H Urine RBC (Auto) 3 03/26/20 03/26/20 03/26/20 00:23 05:31 05:31 WBC 8.5 RBC 4.17 L Hgb 13.3 L Hct 37.7 L MCV 90 MCH 31.8 MCHC 35.2 RDW 13.8 Plt Count 168 Seg Neutrophils % 81.6 H VBG pH VBG pCO2 VBG HCO3 VBG Base Excess Sodium 132.0 L Potassium 3.5 L Chloride 106 Carbon Dioxide 21 L Anion Gap 5 BUN 13 Creatinine 0.98 Est GFR ( Amer) > 60 Glucose 119 H Lactic Acid 1.5 Calcium 8.1 L Total Bilirubin AST Alkaline Phosphatase Total Protein Albumin Urine Color Urine Appearance Urine pH Ur Specific [place] Urine Protein Urine Glucose (UA) Urine Ketones Urine Blood Urine RBC (Auto) Impressions: Chest X-Ray 03/25/20 18:05 IMPRESSION: Few ill-defined left lateral basilar airspace opacities, which may represent a developing infectious process in the acute setting. Forearm X-Ray 03/25/20 18:25 IMPRESSION: Volar proximal forearm soft tissue swelling without radiopaque foreign body identified or underlying acute osseous abnormality.
[2020-03-26] MEDS: DOCUSATE SODIUM 100 MG CAPSULE PO SCH ×2 (09:55→18:11)
[2020-03-26] MEDS ORDERED: VANCOMYCIN HCL 1,250 MG in DEXTROSE 5%-WATER 250 ML IV SCH (10:00)
[2020-03-26] MEDS ORDERED: HYDROXYZINE PAMOATE 25 MG CAPSULE PO PRN (11:34)
--- NOTE | 2020-03-26 12:38 | PDOC PROGRESS REPORT ---
Subjective Progress Note for:: 03/26/20 Subjective:: Patient complaining of some itching at site of adhesive. Is also complaining of pain in his right upper arm. Informed by RN that he is feeling restless. Reason For Visit: IVDU,ARM CELLULITIS Physical Exam Vital Signs: Temp Pulse Resp BP Pulse Ox 98.8 F 78 17 131/63 H 100 03/26/20 10:00 03/26/20 10:00 03/26/20 10:00 03/26/20 10:00 03/26/20 10:00 Intake & Output 03/25/20 03/26/20 03/27/20 06:59 06:59 06:59 Intake Total 1528 4040 Balance 1528 4040 Weight 87.5 kg General appearance: PRESENT: no acute distress, cooperative Neck exam: ABSENT: JVD Respiratory exam: PRESENT: clear to auscultation sharron, symmetrical, unlabored. ABSENT: tachypnea, wheezes Cardiovascular exam: PRESENT: RRR, +S1, +S2, systolic murmur. ABSENT: tac hycardia GI/Abdominal exam: PRESENT: soft. ABSENT: rebound, rigid, tenderness Extremities exam: PRESENT: other - Right upper extremity with pain swelling and erythema around the area of his proximal forearm as well as his distal forearm around his usual injection site. Neurological exam: PRESENT: alert, awake, oriented to person, oriented to place, oriented to time Results Laboratory Results: 03/26/20 05:31 03/26/20 05:31 03/25/20 03/25/20 03/25/20 17:55 17:55 17:55 WBC 10.7 H RBC 4.79 Hgb 15.1 Hct 43.6 MCV 91 MCH 31.6 MCHC 34.7 RDW 13.9 Plt Count 240 Seg Neutrophils % 85.0 H VBG pH 7.50 H VBG pCO2 28.4 L VBG HCO3 21.6 VBG Base Excess -0.3 Sodium 129.5 L Potassium 3.7 Chloride 97 L Carbon Dioxide 22 Anion Gap 11 BUN 16 Creatinine 1.18 Est GFR ( Amer) > 60 Glucose 111 H Lactic Acid Calcium 9.2 Total Bilirubin 0.5 AST 45 Alkaline Phosphatase 68 Total Protein 7.2 Albumin 4.2 Urine Color Urine Appearance Urine pH Ur Specific [place] Urine Protein Urine Glucose (UA) Urine Ketones Urine Blood Urine RBC (Auto) 03/25/20 03/25/20 03/25/20 17:55 21:10 21:28 WBC RBC Hgb Hct MCV MCH MCHC RDW Plt Count Seg Neutrophils % VBG pH VBG pCO2 VBG HCO3 VBG Base Excess Sodium Potassium Chloride Carbon Dioxide Anion Gap BUN Creatinine Est GFR ( Amer) Glucose Lactic Acid 1.3 1.2 Calcium Total Bilirubin AST Alkaline Phosphatase Total Protein Albumin Urine Color YELLOW Urine Appearance CLEAR Urine pH 6.0 Ur Specific [place] 1.013 Urine Protein 30 H Urine Glucose (UA) NEGATIVE Urine Ketones 20 H Urine Blood MODERATE H Urine RBC (Auto) 3 03/26/20 03/26/20 03/26/20 00:23 05:31 05:31 WBC 8.5 RBC 4.17 L Hgb 13.3 L Hct 37.7 L MCV 90 MCH 31.8 MCHC 35.2 RDW 13.8 Plt Count 168 Seg Neutrophils % 81.6 H VBG pH VBG pCO2 VBG HCO3 VBG Base Excess Sodium 132.0 L Potassium 3.5 L Chloride 106 Carbon Dioxide 21 L Anion Gap 5 BUN 13 Creatinine 0.98 Est GFR ( Amer) > 60 Glucose 119 H Lactic Acid 1.5 Calcium 8.1 L Total Bilirubin AST Alkaline Phosphatase Total Protein Albumin Urine Color Urine Appearance Urine pH Ur Specific [place] Urine Protein Urine Glucose (UA) Urine Ketones Urine Blood Urine RBC (Auto) 03/25/20 17:55 Blood Blood Culture (PCR) - Final Strep Pyogenes (Grp A) 03/25/20 19:08 Blood Blood Culture (PCR) - Final Strep Pyogenes (Grp A) Impressions: Chest X-Ray 03/25/20 18:05 IMPRESSION: Few ill-defined left lateral basilar airspace opacities, which may represent a developing infectious process in the acute setting. Forearm X-Ray 03/25/20 18:25 IMPRESSION: Volar proximal forearm soft tissue swelling without radiopaque foreign body identified or underlying acute osseous abnormality. Assessment and Plan - Diagnosis (1) Disease due to invasive group A beta-hemolytic Streptococcus Is this a current diagnosis for this admission?: Yes Plan: Secondary to cellulitis from illicit drug injections. Blood cultures growing strep pyogenes. Patient has penicillin allergy documented. I will change patient's antibiotic regimen to ceftriaxone and clindamycin IV. If improvement noted, clindamycin can be discontinued after 48 hours. Patient will need to be in the hospital for 14 days of IV ceftriaxone in the absence of vegetation. However patient does have a cardiac murmur and no such TTE will be performed to evaluate for endocarditis. (2) Right forearm cellulitis Is this a current diagnosis for this admission?: Yes Plan: Secondary to IV injections. Growing GAS in the blood. No evidence of necrotizing fasciitis. Antibiotics as above. (3) Heart murmur Is this a current diagnosis for this admission?: Yes Plan: Echo. My suspicion for endocarditis given IV drug use history. (4) Thrombophlebitis of superficial veins of upper extremities Qualifiers: Laterality: right Qualified Code(s): I80.8 - Phlebitis and thrombophlebitis of other sites Is this a current diagnosis for this admission?: Yes Plan: Bedside ultrasound performed by surgeon shows thrombosis of the right cephalic vein. Examination reveals accompanying phlebitis. Toradol IV. Will treat with frequent warm compresses and arm elevation. Anticoagulation not indicated. (5) Drug abuse, IV Is this a current diagnosis for this admission?: Yes Plan: Continue patient's home regimen of naltrexone. Hydroxyzine. - Time Time Spent with patient: 15-24 minutes
[2020-03-26] MEDS: CLINDAMYCIN 900 MG/D5W RTU 900 MG/50 ML RTUPB IV SCH ×2 (13:38→21:49)
[2020-03-26] MEDS: FLUOXETINE HCL 20 MG CAPSULE PO SCH (13:39)
[2020-03-26] MEDS: NALTREXONE HCL 50 MG TABLET PO SCH (13:39)
[2020-03-26] MEDS ORDERED: PENICILLIN G-K 5 MILLION UNIT VIAL IV SCH (14:00)
[2020-03-26] MEDS: CEFTRIAXONE 2 GM/D5W RTU 2 GM/50 ML RTUPB IV SCH ×2 (15:20→23:02)
--- NOTE | 2020-03-26 16:56 | XCELERA REPORT ---
[address] [address] Transthoracic Echocardiogram Report Name: EDER FATIMA Age: 39 yrs Gender: Male : 1980 Patient Status: Inpatient Patient Location: [address] [place] [address] Study Date: 03/26/2020 10:11 AM Height: 72 in Weight: 192 lb BSA: 2.1 m2 Procedure: A two-dimensional transthoracic echocardiogram with color flow and Doppler was performed. Study Quality: Fair. Reason For Study: Systolic murmur, IV drug use History: Systolic murmur,/ IV drug use. Ordering Physician: DONITA SOL Performed By: Merissa Mendenhall Interpretation Summary The left ventricle is normal in size. There is mild concentric left ventricular hypertrophy. LV EF is > than 65% Left ventricular systolic function is normal. Doppler measurements suggest normal left ventricular diastolic function The left ventricular wall motion is normal. There is no thrombus. No ASD,VSD,or PFO seen. The right ventricle is normal in size and function. The right atrium is normal. The left atrial size is normal. There is no evidence of mitral valve prolapse. There is no vegetation seen on the mitral valve. There is no mitral valve stenosis. There is a trace amount of mitral regurgitation There is no aortic valvular vegetation. There is no aortic valve stenosis There is no LVOT obstruction. No aortic regurgitation is present. There is no tricuspid stenosis. CANNOT EXCLUDE SMAL VEGETATION ON THE TRICUSPID VALVE. RECOMMRND ANDREW. There is a trace to mild amount of tricuspid regurgitation There is mild pulmonary hypertension by echo RVSP is 41 to 46 mm of Hg , with RA mean of 5 to 10. There is no vegetation on the pulmonic valve. There is no pulmonic valvular stenosis. There is a trace amount of pulmonic regurgitation The aortic root is normal size. The inferior vena cava appeared normal and decreased > 50% with respiration (RAP 5-10 mmHg) There is no pericardial effusion. MMode/2D Measurements & Calculations RVDd: 2.2 cm LVIDd: 5.0 cm FS: 40.3 % Ao root diam: 2.7 cm IVSd: 1.2 cm LVIDs: 3.0 cm EDV(Teich): 116.7 ml Ao root area: 5.8 cm2 LVPWd: 1.2 cm ESV(Teich): 34.1 ml LA dimension: 3.3 cm EF(Teich): 70.8 % Doppler Measurements & Calculations MV E max jaspal: MV P1/2t max jaspal: Ao V2 max: LV V1 max P.3 cm/sec 114.4 cm/sec 183.4 cm/sec 8.4 mmHg MV A max jaspal: MV P1/2t: 36.5 msec Ao max PG: LV V1 max: 62.7 cm/sec MVA(P1/2t): 6.0 cm2 13.5 mmHg 144.6 cm/sec MV E/A: 1.5 MV dec slope: 917.3 cm/sec2 MV dec time: 0.22 sec PA V2 max: PI end-d jaspal: TR max jaspal: MV P1/2t-pr_phl: 100.7 cm/sec 106.0 cm/sec 300.4 cm/sec 36.7 msec PA max PG: TR max P.1 mmHg 36.1 mmHg Left Ventricle The left ventricle is normal in size. There is mild concentric left ventricular hypertrophy. LV EF is > than 65%. Left ventricular systolic function is normal. Doppler measurements suggest normal left ventricular diastolic function. The left ventricular wall motion is normal. There is no thrombus. No ASD,VSD,or PFO seen. Right Ventricle The right ventricle is normal in size and function. Atria The right atrium is normal. The left atrial size is normal. Mitral Valve There is no evidence of mitral valve prolapse. There is no vegetation seen on the mitral valve. There is no mitral valve stenosis. There is a trace amount of mitral regurgitation. Aortic Valve There is no aortic valvular vegetation. There is no aortic valve stenosis. There is no LVOT obstruction. No aortic regurgitation is present. Tricuspid Valve There is no tricuspid stenosis. CANNOT EXCLUDE SMAL VEGETATION ON THE TRICUSPID VALVE. RECOMMRND ANDREW. There is a trace to mild amount of tricuspid regurgitation. There is mild pulmonary hypertension by echo. RVSP is 41 to 46 mm of Hg , with RA mean of 5 to 10. Pulmonic Valve There is no vegetation on the pulmonic valve. There is no pulmonic valvular stenosis. There is a trace amount of pulmonic regurgitation. Great Vessels The aortic root is normal size. The inferior vena cava appeared normal and decreased > 50% with respiration (RAP 5-10 mmHg). Effusions There is no pericardial effusion. : DONITA SOL Lakshmi
[2020-03-26] MEDS: RISPERIDONE 1 MG TABLET PO SCH (18:12)
[2020-03-26] MEDS: HYDROXYZINE PAMOATE 25 MG CAPSULE PO SCH (18:12)
[2020-03-26] MEDS: HYDROXYZINE PAMOATE 50 MG CAPSULE PO SCH (21:49)
[2020-03-26] MEDS ORDERED: HYDROXYZINE PAMOATE 25 MG CAPSULE PO SCH (22:00)
[2020-03-27] MEDS: KETOROLAC TROMETHAMINE INJ/PF 30 MG/1 ML SDV IV PRN ×2 (05:29→22:04)
[2020-03-27] MEDS: HEPARIN SOD (PORCINE) 5,000 UNIT/ML 1 ML VIAL SUBCUT SCH ×2 (05:29→15:11)
[2020-03-27] MEDS: CLINDAMYCIN 900 MG/D5W RTU 900 MG/50 ML RTUPB IV SCH ×3 (05:29→21:44)
[2020-03-27 07:20] LABS: ABSOLUTE LYMPHOCYTES (AUTO) 1.1 10^3/uL (0.5-4.7); ABSOLUTE MONOCYTES (AUTO) 0.6 10^3/uL (0.1-1.4); ABSOLUTE NEUT (AUTO) 3.8 10^3/uL (1.7-8.2); BASOPHILS % (AUTO) 0.5 % (0-2); EOSINOPHILS % (AUTO) 0.1 % (0-6); HEMATOCRIT 39.2 % (37.9-51.0); HEMOGLOBIN 13.3 g/dL (13.5-17.0); LYMPHOCYTES % (AUTO) 19.7 % (13-45); MEAN CORPUSCULAR HEMOGLOBIN 31.2 pg (27.0-33.4); MEAN CORPUSCULAR HGB CONC 33.8 g/dL (32.0-36.0); MEAN CORPUSCULAR VOLUME 92 fl (80-97); MONOCYTES % (AUTO) 10.6 % (3-13); PLATELET COUNT 180 10^3/uL (150-450); RED BLOOD COUNT 4.25 10^6/uL (4.35-5.55); RED CELL DISTRIBUTION WIDTH 14.1 % (11.5-14.0); SEGMENTED NEUTROPHILS % (AUTO) 69.1 % (42-78); TOTAL CELLS COUNTED % (AUTO) 100 %; WHITE BLOOD COUNT 5.6 10^3/uL (4.0-10.5)
[2020-03-27 07:42] LABS: ANION GAP 7 (5-19); BLOOD UREA NITROGEN 11 mg/dL (7-20); CALCIUM 8.3 mg/dL (8.4-10.2); CARBON DIOXIDE 24 mmol/L (22-30); CHLORIDE 106 mmol/L (98-107); GLUCOSE 98 mg/dL (75-110); POTASSIUM 3.9 mmol/L (3.6-5.0)
[2020-03-27] MEDS: CEFTRIAXONE 2 GM/D5W RTU 2 GM/50 ML RTUPB IV SCH ×2 (09:15→21:44)
[2020-03-27] MEDS: DOCUSATE SODIUM 100 MG CAPSULE PO SCH ×2 (09:20→17:34)
[2020-03-27] MEDS: FLUOXETINE HCL 20 MG CAPSULE PO SCH (09:20)
[2020-03-27] MEDS: RISPERIDONE 1 MG TABLET PO SCH ×2 (09:21→17:34)
[2020-03-27] MEDS: NALTREXONE HCL 50 MG TABLET PO SCH (09:21)
[2020-03-27] MEDS: HYDROXYZINE PAMOATE 25 MG CAPSULE PO SCH ×2 (09:21→17:33)
[2020-03-27] MEDS ORDERED: ASPIRIN 325 MG TABLET PO SCH (10:00)
[2020-03-27] MEDS ORDERED: ASPIRIN 325 MG TABLET, ENT COATED PO ONE (14:30)
--- NOTE | 2020-03-27 15:17 | PDOC PROGRESS REPORT ---
Subjective Progress Note for:: 03/27/20 Subjective:: Patient is resting in bed. He just showered. His right arm is noticeably swollen and erythematous. He complains of significant pain. Reason For Visit: IVDU,ARM CELLULITIS Group A strep bacteremia Right upper extremity deep venous thrombosis Physical Exam Vital Signs: Temp Pulse Resp BP Pulse Ox 99.1 F 67 16 105/58 L 99 03/27/20 11:19 03/27/20 11:19 03/27/20 11:19 03/27/20 11:19 03/27/20 11:19 Intake & Output 03/26/20 03/27/20 03/28/20 06:59 06:59 06:59 Intake Total 1528 7725 170 Balance 1528 7725 170 Weight 87.5 kg 95.2 kg General appearance: PRESENT: cooperative, mild distress, well-developed, well- nourished Head exam: PRESENT: atraumatic, normocephalic Eye exam: PRESENT: conjunctiva pink, EOMI. ABSENT: scleral icterus Ear exam: PRESENT: normal external ear exam. ABSENT: bleeding, drainage Mouth exam: PRESENT: moist, tongue midline Respiratory exam: PRESENT: clear to auscultation sharron, symmetrical, unlabored. ABSENT: prolonged expiratory phas, rales, rhonchi, tachypnea, wheezes Cardiovascular exam: PRESENT: RRR, systolic murmur - 2/6. ABSENT: diastolic murmur, irregular rhythm Pulses: PRESENT: normal radial pulses GI/Abdominal exam: PRESENT: normal bowel sounds, soft. ABSENT: distended, guarding, rebound, tenderness Rectal exam: PRESENT: deferred Gentrourinary exam: ABSENT: indwelling catheter Extremities exam: PRESENT: other - Left arm shows significant edema from the mid forearm through the mid bicep area. Flexion at the elbow is limited due to the swelling and discomfort. Markedly erythematous. Musculoskeletal exam: PRESENT: ambulatory. ABSENT: full ROM, normal inspection Neurological exam: PRESENT: alert, awake, oriented to person, oriented to place, oriented to time, oriented to situation, CN II-XII grossly intact. ABSENT: altered, motor sensory deficit - Sensation in right hand intact Psychiatric exam: PRESENT: appropriate affect. ABSENT: agitated, anxious Focused psych exam: ABSENT: delusional, paranoid, restlessness Skin exam: PRESENT: dry, erythema - Right arm, warm Results Laboratory Results: 03/27/20 06:18 03/27/20 06:18 03/27/20 03/27/20 06:18 06:18 WBC 5.6 RBC 4.25 L Hgb 13.3 L Hct 39.2 MCV 92 MCH 31.2 MCHC 33.8 RDW 14.1 H Plt Count 180 Seg Neutrophils % 69.1 Sodium 136.5 L Potassium 3.9 Chloride 106 Carbon Dioxide 24 Anion Gap 7 BUN 11 Creatinine 0.91 Est GFR ( Amer) > 60 Glucose 98 Calcium 8.3 L 03/25/20 19:08 Blood Blood Culture (PCR) - Final Strep Pyogenes (Grp A) 03/25/20 19:08 Blood Blood Culture - Final Group A Beta Streptococcus 03/25/20 17:55 Blood Blood Culture (PCR) - Final Strep Pyogenes (Grp A) 03/25/20 17:55 Blood Blood Culture - Final Group A Beta Streptococcus Impressions: Chest X-Ray 03/25/20 18:05 IMPRESSION: Few ill-defined left lateral basilar airspace opacities, which may represent a developing infectious process in the acute setting. Forearm X-Ray 03/25/20 18:25 IMPRESSION: Volar proximal forearm soft tissue swelling without radiopaque foreign body identified or underlying acute osseous abnormality. Assessment and Plan - Diagnosis (1) Disease due to invasive group A beta-hemolytic Streptococcus Is this a current diagnosis for this admission?: Yes Plan: Secondary to cellulitis from illicit drug injections. Blood cultures growing strep pyogenes. Patient has penicillin allergy documented. I will change patient's antibiotic regimen to ceftriaxone and clindamycin IV. If improvement noted, clindamycin can be discontinued after 48 hours. Patient will need to be in the hospital for 14 days of IV ceftriaxone in the absence of vegetation. However patient does have a cardiac murmur and no such TTE will be performed to evaluate for endocarditis. 03/27/2020 Transthoracic echo obtained. Could not rule out vegetation of the tricuspid v alve. Transesophageal echo has been ordered. Continue clindamycin and ceftriaxone. As noted above once the patient shows improvement we can discontinue the clindamycin. (2) Right forearm cellulitis Is this a current diagnosis for this admission?: Yes Plan: Secondary to IV injections. Growing GAS in the blood. No evidence of necrotizing fasciitis. Antibiotics as above. 03/27/2020 No evidence of abscess. No surgical intervention. Aggressive antibiotics with Rocephin 2 g every 12 and clindamycin 3 times a day (3) Thrombophlebitis of superficial veins of upper extremities Qualifiers: Laterality: right Qualified Code(s): I80.8 - Phlebitis and thrombophlebitis of other sites Is this a current diagnosis for this admission?: Yes Plan: Bedside ultrasound performed by surgeon shows thrombosis of the right cephalic vein. Examination reveals accompanying phlebitis. Toradol IV. Will treat with frequent warm compresses and arm elevation. Anticoagulation not indicated. 03/27/2020 Review of the literature actually indicates that because the cephalic vein is in the proximal portion of the arm it is possible to follow-up a pulmonary embolus. Accident started. Will reevaluate the need prior to discharge. (4) Heart murmur Is this a current diagnosis for this admission?: Yes Plan: Echo. My suspicion for endocarditis given IV drug use history. 03/27/2020 ANDREW has been ordered. Continue current antibiotic regimen. There is ANDREW is positive for vegetation on tricuspid valve then this will greatly extend the duration of antibiotic therapy. We may then consider a cardiac surgery consult (5) Drug abuse, IV Is this a current diagnosis for this admission?: Yes Plan: Continue patient's home regimen of naltrexone. Hydroxyzine. 03/27/2020 As above (6) Depression Qualifiers: Depression Type: unspecified Qualified Code(s): F32.9 - Major depressive disorder, single episode, unspecified Is this a current diagnosis for this admission?: Yes Plan: 03/27/2020 The patient is on antidepressant and antipsychotic therapy. He is currently homeless. We are encouraging him to return to the [facility] and attempt to return to his previous living situation - Time Time Spent with patient: 15-24 minutes Medications reviewed and adjusted accordingly: Yes Anticipated discharge: Home Within: Other - Depends on ANDREW results
[2020-03-27] MEDS: LACTOBACILLUS ACIDOPHILUS 250 MG TAB PO SCH (17:32)
[2020-03-27] MEDS: APIXABAN 5 MG TABLET PO SCH (17:33)
[2020-03-27] MEDS ORDERED: DEXTROSE 40% GEL 15 GM TUBE PO PRN ×2 (21:37)
[2020-03-27] MEDS ORDERED: DEXTROSE 50%-WATER 25 GM/50 ML DISP.SYRIN IV PRN ×2 (21:37)
[2020-03-27] MEDS ORDERED: GLUCAGON,HUMAN RECOMB 1 MG INJ SUBCUT PRN (21:37)
[2020-03-27] MEDS: HYDROXYZINE PAMOATE 50 MG CAPSULE PO SCH (21:43)
[2020-03-27] MEDS: GABAPENTIN 300 MG CAPSULE PO SCH (21:43)
--- NOTE | 2020-03-27 21:44 | PDOC PROGRESS REPORT ---
Subjective Progress Note for:: 03/27/20 Subjective:: 39-year-old male with, redness, swelling, and pain of the right upper extremity. He reports that his pain and swelling are worsening. He also reports that the redness is growing. He reports a hard cord, extending up the arm (which is new today). He denies headache, dizziness, shortness of breath, chest pain, abdominal pain, melena, nausea, vomiting, hematochezia, hematemesis, orthostasis. Reason For Visit: IVDU,ARM CELLULITIS Physical Exam Vital Signs: Temp Pulse Resp BP Pulse Ox 99.5 F 71 16 138/73 H 99 03/27/20 19:15 03/27/20 19:15 03/27/20 19:15 03/27/20 19:15 03/27/20 19:15 Intake & Output 03/26/20 03/27/20 03/28/20 06:59 06:59 06:59 Intake Total 1528 7725 1330 Balance 1528 7725 1330 Weight 87.5 kg 95.2 kg General appearance: PRESENT: no acute distress, cooperative Head exam: PRESENT: atraumatic, normocephalic Eye exam: PRESENT: EOMI, PERRLA. ABSENT: scleral icterus Mouth exam: PRESENT: moist, neck supple Neck exam: ABSENT: meningismus, tenderness, thyromegaly, tracheal deviation Respiratory exam: PRESENT: unlabored. ABSENT: tachypnea, wheezes Cardiovascular exam: ABSENT: tachycardia Vascular exam: PRESENT: normal capillary refill GI/Abdominal exam: PRESENT: soft. ABSENT: rigid, tenderness Extremities exam: PRESENT: other - Right upper extremity with edema, erythema, and a palpable cord. There is some fluctuance near the antecubital fossa. Musculoskeletal exam: ABSENT: deformity Neurological exam: PRESENT: alert, awake, oriented to person, oriented to place, oriented to time, oriented to situation, CN II-XII grossly intact. ABSENT: motor sensory deficit Psychiatric exam: PRESENT: agitated, anxious. ABSENT: depressed Focused psych exam: ABSENT: delusional Skin exam: PRESENT: erythema - See extremity exam. ABSENT: cyanosis, jaundice Results Laboratory Results: 03/27/20 06:18 03/27/20 06:18 03/27/20 03/27/20 06:18 06:18 WBC 5.6 RBC 4.25 L Hgb 13.3 L Hct 39.2 MCV 92 MCH 31.2 MCHC 33.8 RDW 14.1 H Plt Count 180 Seg Neutrophils % 69.1 Sodium 136.5 L Potassium 3.9 Chloride 106 Carbon Dioxide 24 Anion Gap 7 BUN 11 Creatinine 0.91 Est GFR ( Amer) > 60 Glucose 98 Calcium 8.3 L 03/25/20 19:08 Blood Blood Culture (PCR) - Final Strep Pyogenes (Grp A) 03/25/20 19:08 Blood Blood Culture - Final Group A Beta Streptococcus 03/25/20 17:55 Blood Blood Culture (PCR) - Final Strep Pyogenes (Grp A) 03/25/20 17:55 Blood Blood Culture - Final Group A Beta Streptococcus Impressions: Chest X-Ray 03/25/20 18:05 IMPRESSION: Few ill-defined left lateral basilar airspace opacities, which may represent a developing infectious process in the acute setting. Forearm X-Ray 03/25/20 18:25 IMPRESSION: Volar proximal forearm soft tissue swelling without radiopaque foreign body identified or underlying acute osseous abnormality. Assessment & Plan - Diagnosis (1) Septic thrombophlebitis of upper extremities Is this a current diagnosis for this admission?: Yes - Plan Summary Plan Summary: This is a 39-year-old male with an examination consistent with septic thrombophlebitis. The patient reports that his symptoms are worsening. His erythema, induration, and pain continue to increase. I have discussed operative intervention with the patient. The patient is requesting excision of the vein, in an effort to diminish his symptoms. I have reviewed the risks and benefits with the patient. Informed consent was obtained. All questions were answered.
[2020-03-28] MEDS: CLINDAMYCIN 900 MG/D5W RTU 900 MG/50 ML RTUPB IV SCH ×3 (05:23→21:39)
[2020-03-28] MEDS: GABAPENTIN 300 MG CAPSULE PO SCH ×3 (05:24→21:39)
[2020-03-28] MEDS: KETOROLAC TROMETHAMINE INJ/PF 30 MG/1 ML SDV IV PRN ×3 (05:24→17:17)
[2020-03-28] MEDS: FLUOXETINE HCL 20 MG CAPSULE PO SCH (07:46)
[2020-03-28] MEDS ORDERED: SUCCINYLCHOLINE CHLORIDE INJ 200 MG/10 ML VIAL ONE (08:22)
[2020-03-28] MEDS ORDERED: PROPOFOL INJ 200 MG/20 ML VIAL IV ONE (09:08)
[2020-03-28] MEDS ORDERED: MIDAZOLAM 2 MG/2 ML INJ ONE (09:08)
[2020-03-28] MEDS ORDERED: HYDROMORPHONE HCL INJ/PF 2 MG/ML AMPULE ONE (09:08)
[2020-03-28] MEDS ORDERED: DEXMEDETOMIDINE INJ 80 MCG/20 ML VIAL IV ONE (09:08)
[2020-03-28] MEDS ORDERED: FENTANYL CITRATE INJ/PF 100 MCG/2 ML AMPUL ONE (09:08)
[2020-03-28] MEDS ORDERED: ONDANSETRON HCL INJ/PF 4 MG/2 ML SDV ONE (09:08)
[2020-03-28] MEDS ORDERED: BUPIVACAINE HCL 0.25 % INJ/PF (2.5 MG/1 ML) 30 ML VIAL ONE (09:18)
--- NOTE | 2020-03-28 09:21 | PDOC PROGRESS REPORT ---
Subjective Progress Note for:: 03/28/20 Subjective:: 39-year-old male with, redness, swelling, and pain of the right upper extremity. He reports that his pain and swelling are worsening. He also reports that the redness is growing. He reports a hard cord, extending up the arm, that continues to grow. He denies headache, dizziness, shortness of breath, chest pain, abdominal pain, melena, nausea, vomiting, hematochezia, hematemesis, orthostasis. Reason For Visit: IVDU,ARM CELLULITIS Physical Exam Vital Signs: Temp Pulse Resp BP Pulse Ox 97.9 F 84 17 107/56 L 98 03/28/20 08:14 03/28/20 08:14 03/28/20 08:14 03/28/20 08:14 03/28/20 08:14 Intake & Output 03/27/20 03/28/20 03/29/20 06:59 06:59 06:59 Intake Total 7725 1940 Balance 7725 1940 Weight 95.2 kg 95 kg Exam: General appearance: PRESENT: no acute distress, cooperative Head exam: PRESENT: atraumatic, normocephalic Eye exam: PRESENT: EOMI, PERRLA. ABSENT: scleral icterus Mouth exam: PRESENT: moist, neck supple Neck exam: ABSENT: meningismus, tenderness, thyromegaly, tracheal deviation Respiratory exam: PRESENT: unlabored. ABSENT: tachypnea, wheezes Cardiovascular exam: ABSENT: tachycardia Vascular exam: PRESENT: normal capillary refill GI/Abdominal exam: PRESENT: soft. ABSENT: rigid, tenderness Extremities exam: PRESENT: other - Right upper extremity with edema, erythema, and a palpable cord. There is some fluctuance near the antecubital fossa. Musculoskeletal exam: ABSENT: deformity Neurological exam: PRESENT: alert, awake, oriented to person, oriented to place, oriented to time, oriented to situation, CN II-XII grossly intact. ABSENT: motor sensory deficit Psychiatric exam: PRESENT: agitated, anxious. ABSENT: depressed Focused psych exam: ABSENT: delusional Skin exam: PRESENT: erythema - See extremity exam. ABSENT: cyanosis, jaundice Results Laboratory Results: 03/27/20 06:18 03/27/20 06:18 03/25/20 19:08 Blood Blood Culture (PCR) - Final Strep Pyogenes (Grp A) 03/25/20 19:08 Blood Blood Culture - Final Group A Beta Streptococcus 03/25/20 17:55 Blood Blood Culture (PCR) - Final Strep Pyogenes (Grp A) 03/25/20 17:55 Blood Blood Culture - Final Group A Beta Streptococcus Impressions: Chest X-Ray 03/25/20 18:05 IMPRESSION: Few ill-defined left lateral basilar airspace opacities, which may represent a developing infectious process in the acute setting. Forearm X-Ray 03/25/20 18:25 IMPRESSION: Volar proximal forearm soft tissue swelling without radiopaque foreign body identified or underlying acute osseous abnormality. Assessment & Plan - Diagnosis (1) Septic thrombophlebitis of upper extremities Is this a current diagnosis for this admission?: Yes - Plan Summary Plan Summary: This is a 39-year-old male with an examination consistent with septic thrombophlebitis of the right upper extremity. The patient reports that his symptoms are worsening. His erythema, induration, and pain continue to increase. I have again discussed operative intervention with the patient. Risks/benefits discussed, informed consent obtained, and all questions answered.
[2020-03-28] MEDS ORDERED: FENTANYL CITRATE INJ/PF 100 MCG/2 ML AMPUL IV PRN ×3 (10:17)
[2020-03-28] MEDS ORDERED: DIPHENHYDRAMINE HCL 50 MG/ML VIAL IV PRN (10:17)
[2020-03-28] MEDS ORDERED: ONDANSETRON HCL INJ/PF 4 MG/2 ML SDV IV PRN (10:17)
[2020-03-28] MEDS ORDERED: MORPHINE SULFATE 10 MG/ML INJ IV PRN (10:17)
[2020-03-28] MEDS ORDERED: PROMETHAZINE HCL INJ 25 MG/1 ML VIAL IV PRN ×2 (10:17)
[2020-03-28] MEDS ORDERED: OXYCODONE-ACETAMINOPHEN 5-325 MG TABLET PO PRN ×2 (10:17)
[2020-03-28] MEDS ORDERED: MEPERIDINE HCL/PF INJ 25 MG/1 ML DISP.SYRIN IV PRN (10:17)
[2020-03-28] MEDS: FENTANYL CITRATE INJ/PF 100 MCG/2 ML AMPUL ONE ×2 (10:29→10:34)
--- NOTE | 2020-03-28 10:42 | Operative Report ---
Nonrecallable Operative Report DATE OF SURGERY: 03/28/20 PREOPERATIVE DIAGNOSIS: Septic thrombophlebitis of the right upper extremity, cephalic vein. POSTOPERATIVE DIAGNOSIS: Same as above OPERATION: Excision of 12 cm of right upper extremity cephalic vein due to septic thrombophlebitis. SURGEON: DAYANA MAYS ANESTHESIA: GA TISSUE REMOVED OR ALTERED: 1. Wound culture. 2. 12 cm portion of right cephalic vein COMPLICATIONS: None apparent ESTIMATED BLOOD LOSS: Minimal PROCEDURE: Drains/implants: 4 x 4 gauze soaked in Betadine. Procedure in detail: After informed consent was obtained, the patient was brought to the operating room and laid in the supine position. The area of the right upper extremity was prepped and draped in a normal sterile fashion. An incision was created immediately superior to the antecubital fossa. This was the area of maximal fluctuance. Dissection was carried down through the subcutaneous tissues, and the cephalic vein was found where it branches from the median cubital vein. There was purulent material within the cephalic vein, near the antecubital fossa. The vein was traced distally (toward the shoulder). An approximately 12 cm segment was found to have purulent material within it. This segment was excised completely. The proximal and distal veins were suture ligated with 3-0 Vicryl. Once the infected portion of vein was removed, the area was inspected. No further purulence could be identified. The wound was then irrigated. Hemostasis was achieved using electrocautery. A dressing was placed, and the procedure was concluded. All sponge, instrument, and needle counts were correct x2. Condition: Stable.
[2020-03-28] MEDS ORDERED: MORPHINE SULFATE 10 MG/ML INJ ONE (11:14)
[2020-03-28] MEDS: DOCUSATE SODIUM 100 MG CAPSULE PO SCH ×2 (11:22→17:13)
[2020-03-28] MEDS: LACTOBACILLUS ACIDOPHILUS 250 MG TAB PO SCH ×2 (11:22→17:16)
[2020-03-28] MEDS: ASPIRIN 325 MG TABLET, ENT COATED PO SCH (11:22)
[2020-03-28] MEDS: HYDROXYZINE PAMOATE 25 MG CAPSULE PO SCH ×2 (11:23→17:17)
[2020-03-28] MEDS: CEFTRIAXONE 2 GM/D5W RTU 2 GM/50 ML RTUPB IV SCH ×2 (11:23→21:39)
[2020-03-28] MEDS: APIXABAN 5 MG TABLET PO SCH (11:23)
[2020-03-28] MEDS: NALTREXONE HCL 50 MG TABLET PO SCH (11:24)
[2020-03-28] MEDS: RISPERIDONE 1 MG TABLET PO SCH ×2 (11:25→17:17)
--- NOTE | 2020-03-28 11:49 | PDOC PROGRESS REPORT ---
Subjective Progress Note for:: 03/28/20 Subjective:: The patient just returned from the OR. His right upper arm and elbow are wrapped in gauze dressing. He clearly is in pain. Reason For Visit: IVDU,ARM CELLULITIS Physical Exam Vital Signs: Temp Pulse Resp BP Pulse Ox 98.7 F 59 L 16 95/53 L 100 03/28/20 11:30 03/28/20 11:30 03/28/20 11:30 03/28/20 11:30 03/28/20 11:30 Intake & Output 03/27/20 03/28/20 03/29/20 06:59 06:59 06:59 Intake Total 7725 1940 Balance 7725 1940 Weight 95.2 kg 95 kg General appearance: PRESENT: cooperative, mild distress, well-developed, well- nourished Head exam: PRESENT: atraumatic, normocephalic Eye exam: PRESENT: conjunctiva pink. ABSENT: scleral icterus Ear exam: PRESENT: normal external ear exam. ABSENT: bleeding, drainage Respiratory exam: PRESENT: clear to auscultation sharron, symmetrical, unlabored. ABSENT: rales, rhonchi, tachypnea, wheezes Cardiovascular exam: PRESENT: RRR, +S1, +S2, systolic murmur - 2/6 GI/Abdominal exam: PRESENT: normal bowel sounds, soft. ABSENT: distended, guarding, tenderness Rectal exam: PRESENT: deferred Gentrourinary exam: ABSENT: indwelling catheter Extremities exam: PRESENT: other - Right arm wrapped in gauze. ABSENT: pedal edema Musculoskeletal exam: PRESENT: ambulatory. ABSENT: deformity Neurological exam: PRESENT: alert, awake, oriented to person, oriented to place, oriented to time, oriented to situation, CN II-XII grossly intact. ABSENT: altered, motor sensory deficit Psychiatric exam: PRESENT: appropriate affect - Affect reflexes pain. ABSENT: agitated, anxious Focused psych exam: ABSENT: delusional, paranoid, restlessness Skin exam: PRESENT: dry, erythema - Right arm, warm. ABSENT: rash Results Laboratory Results: 03/27/20 06:18 03/27/20 06:18 03/25/20 21:28 Clean Catch Midstream Urine Culture - Final Staph Coagulase Negative 03/25/20 19:08 Blood Blood Culture (PCR) - Final Strep Pyogenes (Grp A) 03/25/20 19:08 Blood Blood Culture - Final Group A Beta Streptococcus 03/25/20 17:55 Blood Blood Culture (PCR) - Final Strep Pyogenes (Grp A) 03/25/20 17:55 Blood Blood Culture - Final Group A Beta Streptococcus Impressions: Chest X-Ray 03/25/20 18:05 IMPRESSION: Few ill-defined left lateral basilar airspace opacities, which may represent a developing infectious process in the acute setting. Forearm X-Ray 03/25/20 18:25 IMPRESSION: Volar proximal forearm soft tissue swelling without radiopaque foreign body identified or underlying acute osseous abnormality. Assessment and Plan - Diagnosis (1) Disease due to invasive group A beta-hemolytic Streptococcus Is this a current diagnosis for this admission?: Yes Plan: Secondary to cellulitis from illicit drug injections. Blood cultures growing strep pyogenes. Patient has penicillin allergy documented. I will change patient's antibiotic regimen to ceftriaxone and clindamycin IV. If improvement noted, clindamycin can be discontinued after 48 hours. Patient will need to be in the hospital for 14 days of IV ceftriaxone in the absence of vegetation. However patient does have a cardiac murmur and no such TTE will be performed to evaluate for endocarditis. 03/27/2020 Transthoracic echo obtained. Could not rule out vegetation of the tricuspid valve. Transesophageal echo has been ordered. Continue clindamycin and ceftriaxone. As noted above once the patient shows improvement we can discontinue the clindamycin. 03/28/2020 Continue Rocephin. Transesophageal echo is scheduled for tomorrow. (2) Right forearm cellulitis Is this a current diagnosis for this admission?: Yes Plan: Secondary to IV injections. Growing GAS in the blood. No evidence of necrotizing fasciitis. Antibiotics as above. 03/27/2020 No evidence of abscess. No surgical intervention. Aggressive antibiotics with Rocephin 2 g every 12 and clindamycin 3 times a day 03/28/2020 The patient went to the OR this morning. He had septic thrombophlebitis and a portion of the cephalic vein had to be excised. (3) Thrombophlebitis of superficial veins of upper extremities Qualifiers: Laterality: right Qualified Code(s): I80.8 - Phlebitis and thrombophlebitis of other sites Is this a current diagnosis for this admission?: Yes Plan: Bedside ultrasound performed by surgeon shows thrombosis of the right cephalic vein. Examination reveals accompanying phlebitis. Toradol IV. Will treat with frequent warm compresses and arm elevation. Anticoagulation not indicated. 03/27/2020 Review of the literature actually indicates that because the cephalic vein is in the proximal portion of the arm it is possible to follow-up a pulmonary embolus. Accident started. Will reevaluate the need prior to discharge. 03/28/2020 With the confirmation of septic thrombophlebitis is full anticoagulation was discontinued and he is back on prophylactic anticoagulation (4) Heart murmur Is this a current diagnosis for this admission?: Yes Plan: Echo. My suspicion for endocarditis given IV drug use history. 03/27/2020 ANDREW has been ordered. Continue current antibiotic regimen. There is ANDREW is positive for vegetation on tricuspid valve then this will greatly extend the duration of antibiotic therapy. We may then consider a cardiac surgery consult 03/28/2020 ANDREW tomorrow (5) Drug abuse, IV Is this a current diagnosis for this admission?: Yes Plan: Continue patient's home regimen of naltrexone. Hydroxyzine. 03/27/2020 As above (6) Depression Qualifiers: Depression Type: unspecified Qualified Code(s): F32.9 - Major depressive disorder, single episode, unspecified Is this a current diagnosis for this admission?: Yes Plan: 03/27/2020 The patient is on antidepressant and antipsychotic therapy. He is currently homeless. We are encouraging him to return to the [place] clinic and attempt to return to his previous living situation 03/28/2020 Tolerating current regimen. No changes. (7) Septic thrombophlebitis of upper extremities Is this a current diagnosis for this admission?: Yes Plan: 03/28/2020 Patient underwent excision of the portion of cephalic vein with the septic thrombus. We will continue the antibiotics. Length of treatment will actually be determined by his ANDREW. - Time Time Spent with patient: Less than 15 minutes Medications reviewed and adjusted accordingly: Yes
[2020-03-28] MEDS: MORPHINE SULFATE 10 MG/ML INJ IV PRN ×3 (14:12→22:25)
[2020-03-28] MEDS: HEPARIN SOD (PORCINE) 5,000 UNIT/ML 1 ML VIAL SUBCUT SCH ×2 (14:13→21:38)
[2020-03-28] MEDS: HYDROXYZINE PAMOATE 50 MG CAPSULE PO SCH (21:40)
[2020-03-29] MEDS: MORPHINE SULFATE 10 MG/ML INJ IV PRN ×5 (02:58→20:08)
[2020-03-29] MEDS: KETOROLAC TROMETHAMINE INJ/PF 30 MG/1 ML SDV IV PRN ×3 (03:02→20:07)
[2020-03-29] MEDS: CLINDAMYCIN 900 MG/D5W RTU 900 MG/50 ML RTUPB IV SCH ×3 (05:02→21:33)
[2020-03-29] MEDS: HEPARIN SOD (PORCINE) 5,000 UNIT/ML 1 ML VIAL SUBCUT SCH ×3 (05:02→21:33)
[2020-03-29] MEDS: GABAPENTIN 300 MG CAPSULE PO SCH ×3 (05:02→21:33)
[2020-03-29 05:22] LABS: ABSOLUTE BASOPHILS # (AUTO) 0.1 10^3/uL (0.0-0.2); ABSOLUTE EOSINOPHILS # (AUTO) 0.1 10^3/uL (0.0-0.6); ABSOLUTE LYMPHOCYTES (AUTO) 2.4 10^3/uL (0.5-4.7); ABSOLUTE MONOCYTES (AUTO) 0.6 10^3/uL (0.1-1.4); ABSOLUTE NEUT (AUTO) 3.6 10^3/uL (1.7-8.2); BASOPHILS % (AUTO) 0.8 % (0-2); EOSINOPHILS % (AUTO) 1.1 % (0-6); HEMATOCRIT 37.2 % (37.9-51.0); HEMOGLOBIN 12.3 g/dL (13.5-17.0); LYMPHOCYTES % (AUTO) 35.9 % (13-45); MEAN CORPUSCULAR HGB CONC 33.1 g/dL (32.0-36.0); MEAN CORPUSCULAR VOLUME 94 fl (80-97); MONOCYTES % (AUTO) 8.2 % (3-13); PLATELET COUNT 240 10^3/uL (150-450); RED BLOOD COUNT 3.97 10^6/uL (4.35-5.55); RED CELL DISTRIBUTION WIDTH 14.1 % (11.5-14.0); TOTAL CELLS COUNTED % (AUTO) 100 %; WHITE BLOOD COUNT 6.7 10^3/uL (4.0-10.5)
[2020-03-29 05:40] LABS: ANION GAP 11 (5-19); BLOOD UREA NITROGEN 12 mg/dL (7-20); CALCIUM 8.5 mg/dL (8.4-10.2); CARBON DIOXIDE 23 mmol/L (22-30); CHLORIDE 103 mmol/L (98-107); GLUCOSE 121 mg/dL (75-110); POTASSIUM 3.6 mmol/L (3.6-5.0)
[2020-03-29] MEDS: FLUOXETINE HCL 20 MG CAPSULE PO SCH (07:34)
--- NOTE | 2020-03-29 09:37 | PDOC PROGRESS REPORT ---
Subjective Progress Note for:: 03/29/20 Reason For Visit: IVDU,ARM CELLULITIS Patient doing well, has much less pain in his right upper extremity. Set up for ANDREW today. Physical Exam Vital Signs: Temp Pulse Resp BP Pulse Ox 98.6 F 57 L 16 105/51 L 96 03/29/20 07:18 03/29/20 07:18 03/29/20 07:18 03/29/20 07:18 03/29/20 07:18 Intake & Output 03/28/20 03/29/20 03/30/20 06:59 06:59 06:59 Intake Total 1940 3105 Output Total 505 Balance 1940 2600 Weight 95 kg 94 kg General appearance: PRESENT: no acute distress Extremities exam: PRESENT: other - Right arm dressing removed, packing removed. Arm swelling virtually resolved; no erythema. Wound cavity clean, no foul smell pus etc. No bleeding. Results Laboratory Results: 03/29/20 04:53 03/29/20 04:53 03/29/20 03/29/20 04:53 04:53 WBC 6.7 RBC 3.97 L Hgb 12.3 L Hct 37.2 L MCV 94 MCH 31.0 MCHC 33.1 RDW 14.1 H Plt Count 240 Seg Neutrophils % 54.0 Sodium 136.7 L Potassium 3.6 Chloride 103 Carbon Dioxide 23 Anion Gap 11 BUN 12 Creatinine 0.98 Est GFR ( Amer) > 60 Glucose 121 H Calcium 8.5 Magnesium 1.9 03/25/20 21:28 Clean Catch Midstream Urine Culture - Final Staph Coagulase Negative Impressions: Chest X-Ray 03/25/20 18:05 IMPRESSION: Few ill-defined left lateral basilar airspace opacities, which may represent a developing infectious process in the acute setting. Forearm X-Ray 03/25/20 18:25 IMPRESSION: Volar proximal forearm soft tissue swelling without radiopaque foreign body identified or underlying acute osseous abnormality. Assessment & Plan - Diagnosis (1) Right forearm cellulitis Is this a current diagnosis for this admission?: Yes Plan: Depression: Septic thrombophlebitis of the right upper extremity status post operative debridement with a cephalic vein dissection; septic focus eradicated. Excellent early postoperative result. Recommendations: 1. We will start patient on dressing changes; see orders 2. Continue intravenous antibiotics, then convert to oral antibiotics per medical service; if ANDREW shows vegetations, then antibiotic therapy will need to be extended. 3. Patient can follow-up with [facility], Dr. Bond in 1 to 2 weeks after discharge 4. I discussed the above with Dr. Cristiano Silverio (2) Drug abuse, IV Is this a current diagnosis for this admission?: Yes - Time Time Spent: 30 to 50 Minutes
[2020-03-29] MEDS: LACTOBACILLUS ACIDOPHILUS 250 MG TAB PO SCH ×2 (09:44→17:07)
[2020-03-29] MEDS: ASPIRIN 325 MG TABLET, ENT COATED PO SCH (09:44)
[2020-03-29] MEDS: DOCUSATE SODIUM 100 MG CAPSULE PO SCH ×2 (09:44→17:21)
[2020-03-29] MEDS: HYDROXYZINE PAMOATE 25 MG CAPSULE PO SCH ×2 (09:45→17:21)
[2020-03-29] MEDS: RISPERIDONE 1 MG TABLET PO SCH ×2 (09:45→17:21)
[2020-03-29] MEDS: NALTREXONE HCL 50 MG TABLET PO SCH (09:45)
[2020-03-29] MEDS: CEFTRIAXONE 2 GM/D5W RTU 2 GM/50 ML RTUPB IV SCH ×3 (09:45→21:35)
--- NOTE | 2020-03-29 15:13 | XCELERA REPORT ---
Study ID: [id number] [id number] Transesophageal Echocardiogram Report Name: EDER FATIMA Age: 39 yrs Gender: Male : 1980 Patient Status: Inpatient Patient Location: [address] [place], [place] [address] Study Date: 03/29/2020 01:07 PM History: IVDU Bactermeia Height: 72 in Weight: 209 lb BSA: 2.2 m2 Reason For Study: Murmur IV drug use strep bacteremia Ordering Physician: RIN GREEN Performed By: Keke Guan Interpretation Summary There is no evidence of a mass or vegetation. This does not rule out endocarditis. Left ventricular systolic function is normal. Ejection Fraction = >55%. The right ventricle is normal in size and function. No hemodynamically significant valvular aortic stenosis. There is trace mitral regurgitation. No tricuspid regurgitation. There is no pericardial effusion. There is no evidence of a mass or vegetation. This does not rule out endocarditis. Procedure A complete two-dimensional transesophageal echocardiogram was performed (2D, spectral and color flow Doppler). Informed consent for Transesophageal Echocardiogram, and use of a contrast agent as needed, was obtained prior to the procedure. The patient was brought to the OR in a fasting state. An intravenous line was placed. A topical anesthetic agent was used for oropharangeal anesthesia. A bite block was inserted. IV conscious sedation was administered using per anesthesia team. The transesophageal probe was passed without difficulty. The usual views were obtained; basal, mid-esophageal, transgastric and aortic views. The patient tolerated the procedure well without evidence of orophangeal or esophageal trauma. Subsequent to all the images being obtained the probe was removed with out trauma. Left Ventricle The left ventricle is grossly normal size. There is no thrombus. There is normal left ventricular wall thickness. Left ventricular systolic function is normal. Ejection Fraction = >55%. No regional wall motion abnormalities noted. Right Ventricle The right ventricle is normal in size and function. Atria The interatrial septum is intact with no evidence for an atrial septal defect. The left atrial size is normal. No thrombus is detected in the left atrial appendage. Right atrial size is normal. Mitral Valve The mitral valve is normal in structure and function. There is no vegetation seen on the mitral valve. There is trace mitral regurgitation. Tricuspid Valve There is no tricuspid valve vegetation. No tricuspid regurgitation. Aortic Valve The aortic valve is trileaflet. The aortic valve opens well. The aortic valve is normal in structure and function. There is no aortic valvular vegetation. No hemodynamically significant valvular aortic stenosis. No aortic regurgitation is present. Pulmonic Valve The pulmonic valve is not well visualized. Arteries The aortic root is not well visualized. Pericardium There is no pericardial effusion. : RIN GREEN Anil
--- NOTE | 2020-03-29 20:43 | PDOC PROGRESS REPORT ---
Subjective Progress Note for:: 03/29/20 Subjective:: Patient returns from transesophageal echocardiogram. Pain is improved in his right arm however he is still concerned about a palpable thrombus in the proximal forearm. Reason For Visit: IVDU,ARM CELLULITIS Physical Exam Vital Signs: Temp Pulse Resp BP Pulse Ox 97.5 F 54 L 16 122/82 99 03/29/20 16:00 03/29/20 16:00 03/29/20 16:00 03/29/20 16:00 03/29/20 16:00 Intake & Output 03/28/20 03/29/20 03/30/20 06:59 06:59 06:59 Intake Total 1940 3105 644 Output Total 505 Balance 1940 2600 644 Weight 95 kg 94 kg General appearance: PRESENT: mild distress, well-developed Head exam: PRESENT: atraumatic, normocephalic Respiratory exam: PRESENT: clear to auscultation sharron, symmetrical, unlabored. ABSENT: rales, rhonchi, tachypnea, wheezes Cardiovascular exam: PRESENT: RRR, +S1, +S2, systolic murmur GI/Abdominal exam: PRESENT: normal bowel sounds, soft. ABSENT: distended, guarding, tenderness Rectal exam: PRESENT: deferred Gentrourinary exam: ABSENT: indwelling catheter Extremities exam: ABSENT: pedal edema Musculoskeletal exam: PRESENT: other - The wound was inspected today. There is a large incision on the distal upper arm proximal to the antecubital fossa. The fascia from the biceps muscle is visible. There is also a palpable cord in the proximal forearm. Neurological exam: PRESENT: alert, awake, oriented to person, oriented to place, oriented to time, oriented to situation, CN II-XII grossly intact Psychiatric exam: ABSENT: agitated, anxious Focused psych exam: ABSENT: delusional, paranoid, restlessness Skin exam: PRESENT: dry, erythema - Still with erythema proximal forearm, warm Results Laboratory Results: 03/29/20 04:53 03/29/20 04:53 03/29/20 03/29/20 04:53 04:53 WBC 6.7 RBC 3.97 L Hgb 12.3 L Hct 37.2 L MCV 94 MCH 31.0 MCHC 33.1 RDW 14.1 H Plt Count 240 Seg Neutrophils % 54.0 Sodium 136.7 L Potassium 3.6 Chloride 103 Carbon Dioxide 23 Anion Gap 11 BUN 12 Creatinine 0.98 Est GFR ( Amer) > 60 Glucose 121 H Calcium 8.5 Magnesium 1.9 Impressions: Chest X-Ray 03/25/20 18:05 IMPRESSION: Few ill-defined left lateral basilar airspace opacities, which may represent a developing infectious process in the acute setting. Forearm X-Ray 03/25/20 18:25 IMPRESSION: Volar proximal forearm soft tissue swelling without radiopaque foreign body identified or underlying acute osseous abnormality. Assessment and Plan - Diagnosis (1) Disease due to invasive group A beta-hemolytic Streptococcus Is this a current diagnosis for this admission?: Yes Plan: Secondary to cellulitis from illicit drug injections. Blood cultures growing strep pyogenes. Patient has penicillin allergy documented. I will change patient's antibiotic regimen to ceftriaxone and clindamycin IV. If improvement noted, clindamycin can be discontinued after 48 hours. Patient will need to be in the hospital for 14 days of IV ceftriaxone in the absence of vegetation. However patient does have a cardiac murmur and no such TTE will be performed to evaluate for endocarditis. 03/27/2020 Transthoracic echo obtained. Could not rule out vegetation of the tricuspid valve. Transesophageal echo has been ordered. Continue clindamycin and ceftriaxone. As noted above once the patient shows improvement we can discontinue the clindamycin. 03/28/2020 Continue Rocephin. Transesophageal echo is scheduled for tomorrow. 03/29/2020 ANDREW was negative for vegetation. The patient will need 6 weeks of antibiotics but at least 14 days. (2) Right forearm cellulitis Is this a current diagnosis for this admission?: Yes Plan: Depression: Septic thrombophlebitis of the right upper extremity status post operative debridement with a cephalic vein dissection; septic focus eradicated. Excellent early postoperative result. Recommendations: 1. We will start patient on dressing changes; see orders 2. Continue intravenous antibiotics, then convert to oral antibiotics per medical service; if ANDREW shows vegetations, then antibiotic therapy will need to be extended. 3. Patient can follow-up with [facility], Dr. Bond in 1 to 2 weeks after discharge 4. I discussed the above with Dr. Cristiano Silverio (3) Thrombophlebitis of superficial veins of upper extremities Qualifiers: Laterality: right Qualified Code(s): I80.8 - Phlebitis and thrombophlebitis of other sites Is this a current diagnosis for this admission?: Yes Plan: Bedside ultrasound performed by surgeon shows thrombosis of the right cephalic vein. Examination reveals accompanying phlebitis. Toradol IV. Will treat with frequent warm compresses and arm elevation. Anticoagulation not indicated. 03/27/2020 Review of the literature actually indicates that because the cephalic vein is in the proximal portion of the arm it is possible to follow-up a pulmonary embolus. Accident started. Will reevaluate the need prior to discharge. 03/28/2020 With the confirmation of septic thrombophlebitis is full anticoagulation was discontinued and he is back on prophylactic anticoagulation 03/29/[address] Tate' notes above. We will continue clindamycin as ordered. If the proximal forearm does not seem to be improving we may asked surgery to review (4) Heart murmur Is this a current diagnosis for this admission?: Yes Plan: Echo. My suspicion for endocarditis given IV drug use history. 03/27/2020 ANDREW has been ordered. Continue current antibiotic regimen. There is ANDREW is positive for vegetation on tricuspid valve then this will greatly extend the duration of antibiotic therapy. We may then consider a cardiac surgery consult 03/28/2020 ANDREW tomorrow 03/29/2020 ANDREW shows no vegetations (5) Drug abuse, IV Is this a current diagnosis for this admission?: Yes Plan: Continue patient's home regimen of naltrexone. Hydroxyzine. 03/27/2020 As above (6) Depression Qualifiers: Depression Type: unspecified Qualified Code(s): F32.9 - Major depressive disorder, single episode, unspecified Is this a current diagnosis for this admission?: Yes Plan: 03/27/2020 The patient is on antidepressant and antipsychotic therapy. He is currently homeless. We are encouraging him to return to the [place] clinic and attempt to return to his previous living situation 03/28/2020 Tolerating current regimen. No changes. 03/29/2020 Continue current regimen (7) Septic thrombophlebitis of upper extremities Is this a current diagnosis for this admission?: Yes Plan: 03/28/2020 Patient underwent excision of the portion of cephalic vein with the septic thrombus. We will continue the antibiotics. Length of treatment will actually be determined by his ANDREW. 03/29/2020 Large wound but it is clean. Continue dressing changes per surgery. - Time Time Spent with patient: Less than 15 minutes Medications reviewed and adjusted accordingly: Yes Anticipated discharge: Home
[2020-03-29] MEDS: HYDROXYZINE PAMOATE 50 MG CAPSULE PO SCH (21:39)
[2020-03-30] MEDS: MORPHINE SULFATE 10 MG/ML INJ IV PRN ×4 (00:11→13:13)
[2020-03-30] MEDS: KETOROLAC TROMETHAMINE INJ/PF 30 MG/1 ML SDV IV PRN ×2 (04:45→10:44)
[2020-03-30] MEDS: GABAPENTIN 300 MG CAPSULE PO SCH ×2 (05:00→13:04)
[2020-03-30] MEDS: CLINDAMYCIN 900 MG/D5W RTU 900 MG/50 ML RTUPB IV SCH ×2 (05:00→13:04)
[2020-03-30] MEDS: HEPARIN SOD (PORCINE) 5,000 UNIT/ML 1 ML VIAL SUBCUT SCH ×2 (05:01→13:06)
[2020-03-30] MEDS: FLUOXETINE HCL 20 MG CAPSULE PO SCH (07:29)
[2020-03-30] MEDS: DOCUSATE SODIUM 100 MG CAPSULE PO SCH (09:00)
[2020-03-30] MEDS: HYDROXYZINE PAMOATE 25 MG CAPSULE PO SCH (09:01)
[2020-03-30] MEDS: ASPIRIN 325 MG TABLET, ENT COATED PO SCH (09:01)
[2020-03-30] MEDS: RISPERIDONE 1 MG TABLET PO SCH (09:01)
[2020-03-30] MEDS: LACTOBACILLUS ACIDOPHILUS 250 MG TAB PO SCH (09:01)
[2020-03-30] MEDS: NALTREXONE HCL 50 MG TABLET PO SCH (09:01)
[2020-03-30] MEDS: CEFTRIAXONE 2 GM/D5W RTU 2 GM/50 ML RTUPB IV SCH (09:02)
[2020-03-30] MEDS ORDERED: DIPHENHYDRAMINE HCL 50 MG/ML VIAL IV PRN (09:13)
--- NOTE | 2020-03-30 09:14 | PDOC DISCHARGE SUMMARY ---
Impression - Admit/DC Date/PCP Admission Date/Primary Care Provider: 03/25/20 21:[facility] Discharge Date: 03/30/20 - Discharge Diagnosis (1) Disease due to invasive group A beta-hemolytic Streptococcus Is this a current diagnosis for this admission?: Yes (2) Right forearm cellulitis Is this a current diagnosis for this admission?: Yes (3) Thrombophlebitis of superficial veins of upper extremities Is this a current diagnosis for this admission?: Yes (4) Heart murmur Is this a current diagnosis for this admission?: Yes (5) Drug abuse, IV Is this a current diagnosis for this admission?: Yes (6) Depression Is this a current diagnosis for this admission?: Yes (7) Septic thrombophlebitis of upper extremities Is this a current diagnosis for this admission?: Yes - Additional Information Resuscitation Status: Full Code Referrals: WOUND CARE [Outside] - 04/03/20 8:00 am [facility] - Follow up as needed (The [facility]ointment system is down at the moment. Please contact them to schedule follow-up care. Thank you and have a great day!) Prescriptions: Amoxicillin/Potassium Clav [Augmentin 875-125 Tablet] 1 tab PO Q12 7 Days #14 tablet Gabapentin 600 mg PO Q8 30 Days #90 tablet Home Medications: Fluoxetine HCl [Prozac 20 mg Capsule] 20 mg PO QAM 03/26/20 Hydroxyzine Pamoate [Vistaril 25 mg Capsule] 25 mg PO BID 03/26/20 Hydroxyzine Pamoate [Vistaril 25 mg Capsule] 50 mg PO QHS 03/26/20 Naltrexone HCl [Revia 50 mg Tablet] 50 mg PO DAILY 03/26/20 Risperidone [Risperdal 1 mg Tablet] 0.5 mg PO BID 03/26/20 Amoxicillin/Potassium Clav [Augmentin 875-125 Tablet] 1 tab PO Q12 7 Days #14 tablet 03/30/20 Aspirin [Ecotrin 325 mg EC Tablet] 325 mg PO DAILY tabec 03/30/20 Docusate Sodium [Colace 100 mg Capsule] 100 mg PO BID capsule 03/30/20 Gabapentin 600 mg PO Q8 30 Days #90 tablet 03/30/20 Lactobacillus Acidophilus [Bacid 250 mg Tablet] 500 mg PO BID tab 03/30/20 History of Present Illiness History of Present Illness: EDER FATIMA is a 39 year old male with a past medical history of PTSD, chronic low back pain, polysubstance abuse of IV heroin, methamphetamine and cannabis smoking. He presents with 48 hours of swelling erythema and pain to his right antecubital area developing fever he presents the emergency department found to have leukocytosis, fever and inflammation described. No foreign body is discovered by imaging, he receives IV vancomycin and referred to the hospitalist for admission. Patient admits to heroin use weekly. He denies chest pain palpitations or shortness of breath. He does take regular medications but does not recall the names. Hospital Course Hospital Course: (1) Disease due to invasive group A beta-hemolytic Streptococcus Is this a current diagnosis for this admission?: Yes Plan: Secondary to cellulitis from illicit drug injections. Blood cultures growing strep pyogenes. Patient has penicillin allergy documented. I will change patient's antibiotic regimen to ceftriaxone and clindamycin IV. If improvement noted, clindamycin can be discontinued after 48 hours. Patient will need to be in the hospital for 14 days of IV ceftriaxone in the absence of vegetation. However patient does have a cardiac murmur and no such TTE will be performed to evaluate for endocarditis. 03/27/2020 Transthoracic echo obtained. Could not rule out vegetation of the tricuspid valve. Transesophageal echo has been ordered. Continue clindamycin and ceftriaxone. As noted above once the patient shows improvement we can discontinue the clindamycin. 03/28/2020 Continue Rocephin. Transesophageal echo is scheduled for tomorrow. 03/29/2020 ANDREW was negative for vegetation. The patient will need 6 weeks of antibiotics but at least 14 days. 03/30/2020 The patient will not need 6 weeks of antibiotics. He will receive an additional 7 days of Augmentin (2) Right forearm cellulitis Is this a current diagnosis for this admission?: Yes Plan: Depression: Septic thrombophlebitis of the right upper extremity status post operative debridement with a cephalic vein dissection; septic focus eradicated. Excellent early postoperative result. Recommendations: 1. We will start patient on dressing changes; see orders 2. Continue intravenous antibiotics, then convert to oral antibiotics per medical service; if ANDREW shows vegetations, then antibiotic therapy will need to be extended. 3. Patient can follow-up with [facility], Dr. Bond in 1 to 2 weeks after discharge 4. I discussed the above with Dr. Cristiano Silverio (3) Thrombophlebitis of superficial veins of upper extremities Qualifiers: Laterality: right Qualified Code(s): I80.8 - Phlebitis and thrombophlebitis of other sites Is this a current diagnosis for this admission?: Yes Plan: Bedside ultrasound performed by surgeon shows thrombosis of the right cephalic vein. Examination reveals accompanying phlebitis. Toradol IV. Will treat with frequent warm compresses and arm elevation. Anticoagulation not indicated. 03/27/2020 Review of the literature actually indicates that because the cephalic vein is in the proximal portion of the arm it is possible to follow-up a pulmonary embolus. Accident started. Will reevaluate the need prior to discharge. 03/28/2020 With the confirmation of septic thrombophlebitis is full anticoagulation was dis continued and he is back on prophylactic anticoagulation 03/29/[address] Tate' notes above. We will continue clindamycin as ordered. If the proximal forearm does not seem to be improving we may asked surgery to review (4) Heart murmur Is this a current diagnosis for this admission?: Yes Plan: Echo. My suspicion for endocarditis given IV drug use history. 03/27/2020 ANDREW has been ordered. Continue current antibiotic regimen. There is ANDREW is positive for vegetation on tricuspid valve then this will greatly extend the d uration of antibiotic therapy. We may then consider a cardiac surgery consult 03/28/2020 ANDREW tomorrow 03/29/2020 ANDREW shows no vegetations (5) Drug abuse, IV Is this a current diagnosis for this admission?: Yes Plan: Continue patient's home regimen of naltrexone. Hydroxyzine. 03/27/2020 As above (6) Depression Qualifiers: Depression Type: unspecified Qualified Code(s): F32.9 - Major depressive disorder, single episode, unspecified Is this a current diagnosis for this admission?: Yes Plan: 03/27/2020 The patient is on antidepressant and antipsychotic therapy. He is currently homeless. We are encouraging him to return to the [facility] and attempt to return to his previous living situation 03/28/2020 Tolerating current regimen. No changes. 03/29/2020 Continue current regimen (7) Septic thrombophlebitis of upper extremities Is this a current diagnosis for this admission?: Yes Plan: 03/28/2020 Patient underwent excision of the portion of cephalic vein with the septic thrombus. We will continue the antibiotics. Length of treatment will actually be determined by his ANDREW. 03/29/2020 Large wound but it is clean. Continue dressing changes per surgery. 03/30/2020 The patient has an appointment at the wound care center Thursday Physical Exam Vital Signs: Temp Pulse Resp BP Pulse Ox 97.6 F 63 16 93/66 L 96 03/30/20 08:00 03/30/20 08:00 03/30/20 08:00 03/30/20 08:00 03/30/20 08:00 Intake & Output 03/29/20 03/30/20 03/31/20 06:59 06:59 06:59 Intake Total 3105 1894 Output Total 505 Balance 2600 1894 Weight 94 kg 94.2 kg General appearance: PRESENT: no acute distress Respiratory exam: PRESENT: clear to auscultation sharron, symmetrical, unlabored. ABSENT: rales, rhonchi, tachypnea, wheezes Cardiovascular exam: PRESENT: RRR, +S1, +S2, systolic murmur - 2/6 Extremities exam: PRESENT: other - Still with a palpable cord in the proximal forearm. The incision looks clean. Neurological exam: PRESENT: alert, awake, oriented to person, oriented to place, oriented to time, oriented to situation, CN II-XII grossly intact. ABSENT: altered Psychiatric exam: PRESENT: appropriate affect. ABSENT: agitated, anxious Focused psych exam: ABSENT: delusional, paranoid, restlessness Results Laboratory Results: WBC 6.7 10^3/uL (4.0-10.5) 03/29/20 04:53 RBC 3.97 10^6/uL (4.35-5.55) L 03/29/20 04:53 Hgb 12.3 g/dL (13.5-17.0) L 03/29/20 04:53 Hct 37.2 % (37.9-51.0) L 03/29/20 04:53 MCV 94 fl (80-97) 03/29/20 04:53 MCH 31.0 pg (27.0-33.4) 03/29/20 04:53 MCHC 33.1 g/dL (32.0-36.0) 03/29/20 04:53 RDW 14.1 % (11.5-14.0) H 03/29/20 04:53 Plt Count 240 10^3/uL (150-450) 03/29/20 04:53 Lymph % (Auto) 35.9 % (13-45) 03/29/20 04:53 [place] % (Auto) 8.2 % (3-13) 03/29/20 04:53 Eos % (Auto) 1.1 % (0-6) 03/29/20 04:53 Baso % (Auto) 0.8 % (0-2) 03/29/20 04:53 Absolute Neuts (auto) 3.6 10^3/uL (1.7-8.2) 03/29/20 04:53 Absolute Lymphs (auto) 2.4 10^3/uL (0.5-4.7) 03/29/20 04:53 Absolute Monos (auto) 0.6 10^3/uL (0.1-1.4) 03/29/20 04:53 Absolute Eos (auto) 0.1 10^3/uL (0.0-0.6) 03/29/20 04:53 Absolute Basos (auto) 0.1 10^3/uL (0.0-0.2) 03/29/20 04:53 Seg Neutrophils % 54.0 % (42-78) 03/29/20 04:53 PT 13.2 SEC (11.4-15.4) 03/25/20 17:55 INR 1.00 03/25/20 17:55 VBG pH 7.50 (7.30-7.42) H 03/25/20 17:55 VBG pCO2 28.4 mmHg (35-63) L 03/25/20 17:55 VBG HCO3 21.6 mmol/L (20-32) 03/25/20 17:55 VBG Base Excess -0.3 mmol/L 03/25/20 17:55 Sodium 136.7 mmol/L (137-145) L 03/29/20 04:53 Potassium 3.6 mmol/L (3.6-5.0) 03/29/20 04:53 Chloride 103 mmol/L (98-107) 03/29/20 04:53 Carbon Dioxide 23 mmol/L (22-30) 03/29/20 04:53 Anion Gap 11 (5-19) 03/29/20 04:53 BUN 12 mg/dL (7-20) 03/29/20 04:53 Creatinine 0.98 mg/dL (0.52-1.25) 03/29/20 04:53 Est GFR ( Amer) > 60 (>60) 03/29/20 04:53 Est GFR (MDRD) Non-Af > 60 (>60) 03/29/20 04:53 Glucose 121 mg/dL (75-110) H 03/29/20 04:53 POC Glucose 104 mg/dL (70-110) 03/25/20 21:32 Lactic Acid 1.5 mmol/L (0.7-2.1) 03/26/20 00:23 Calcium 8.5 mg/dL (8.4-10.2) 03/29/20 04:53 Magnesium 1.9 mg/dL (1.6-2.3) 03/29/20 04:53 Total Bilirubin 0.5 mg/dL (0.2-1.3) 03/25/20 17:55 Direct Bilirubin 0.0 mg/dL (0.0-0.4) 03/25/20 17:55 Neonat Total Bilirubin Not Reportable 03/25/20 17:55 Neonat Direct Bilirubin Not Reportable 03/25/20 17:55 Neonat Indirect Bili Not Reportable 03/25/20 17:55 AST 45 U/L (17-59) 03/25/20 17:55 ALT 38 U/L (<50) 03/25/20 17:55 Alkaline Phosphatase 68 U/L (38-126) 03/25/20 17:55 Total Protein 7.2 g/dL (6.3-8.2) 03/25/20 17:55 Albumin 4.2 g/dL (3.5-5.0) 03/25/20 17:55 Urine Color YELLOW 03/25/20 21:28 Urine Appearance CLEAR 03/25/20 21:28 Urine pH 6.0 (5.0-9.0) 03/25/20 21:28 Ur Specific [place] 1.013 03/25/20 21:28 Urine Protein 30 mg/dL (NEGATIVE) H 03/25/20 21:28 Urine Glucose (UA) NEGATIVE mg/dL (NEGATIVE) 03/25/20 21:28 Urine Ketones 20 mg/dL (NEGATIVE) H 03/25/20 21:28 Urine Blood MODERATE (NEGATIVE) H 03/25/20 21:28 Urine Nitrite (Reflex) NEGATIVE (NEGATIVE) 03/25/20 21:28 Urine Bilirubin NEGATIVE (NEGATIVE) 03/25/20 21:28 Urine Urobilinogen NEGATIVE mg/dL (<2.0) 03/25/20 21:28 Leukocyte Esterase Rfl TRACE (NEGATIVE) H 03/25/20 21:28 Urine RBC (Auto) 3 /HPF 03/25/20 21:28 Urine WBC (Reflex) 4 /HPF 03/25/20 21:28 Urine Mucus (Auto) RARE /LPF 03/25/20 21:28 Urine Ascorbic Acid NEGATIVE (NEGATIVE) 03/25/20 21:28 Urine Opiates Screen NEGATIVE 03/25/20 21:28 Urine Methadone Screen NEGATIVE 03/25/20 21:28 Ur Barbiturates Screen NEGATIVE 03/25/20 21:28 Ur Phencyclidine Scrn NEGATIVE 03/25/20 21:28 Ur Amphetamines Screen NEGATIVE 03/25/20 21:28 U Benzodiazepines Scrn NEGATIVE 03/25/20 21:28 Urine Cocaine Screen NEGATIVE 03/25/20 21:28 U Marijuana (THC) Screen NEGATIVE 03/25/20 21:28 SARS-CoV-2 (PCR) NEGATIVE (NEGATIVE) 03/27/20 23:15 Impressions: Chest X-Ray 03/25/20 18:05 IMPRESSION: Few ill-defined left lateral basilar airspace opacities, which may represent a developing infectious process in the acute setting. Forearm X-Ray 03/25/20 18:25 IMPRESSION: Volar proximal forearm soft tissue swelling without radiopaque foreign body identified or underlying acute osseous abnormality. Plan Health Concerns: Current living situation is less than ideal. It limits wound care intervention. Plan of Treatment: Complete antibiotics as an outpatient with Augmentin 875 mg twice a day. Wound care center appointment April 03. Goals: Healing of the right arm surgical site as well as resolution of the swelling in the right forearm Time Spent: Greater than 30 Minutes Stroke Is this a Stroke Patient?: No Acute Heart Failure - Is this a Heart Failure Patient?: No
[2020-03-30] MEDS ORDERED: AMOXICILLIN TR/POT CLAVULANATE 875-125 MG TAB PO ONE (10:00)
[2020-03-30 12:06] VITALS: BP 119/74
--- NOTE | 2020-03-30 19:54 | Progress Note ---
Provider Note Provider Note: [facility] Brief Note This chart was reviewed with pharmacy/antibiotic stewardship for Streptococcus pyognes bacteremia with septic thrombophlebitis in the setting of active intravenous drug use. A recommendation was given to complete at least 2 weeks of ceftriaxone in the hospital but patient decided to leave. This was discussed with hospitalist for the need to complete IV therapy but patient insisted on leaving the hospital. Patient has an allergy to amoxicillin, but he was discharged on augmentin, not sure if patient referred he has tolerated it before. Please call if questions. Freda Rios MD [facility] [phone]
== END 2020-03-30 14:30 | disposition home or self-care (01) | DRG 253 ==
LOC: ER 17:26 → EH 21:53 → 4S 23:39
PROVIDERS: ADMIT Internal Medicine; ATTEND Hospitalist
PROC: B24BZZ4 Ultrasonography of Heart with Aorta, Transesophageal (ICD-10-PCS; 2020-03-26)
PROC: 05BD0ZZ Excision of Right Cephalic Vein, Open Approach (ICD-10-PCS; principal; 2020-03-28 09:15)
DX: I80.8 Phlebitis and thrombophlebitis of other sites (principal); L03.113 Cellulitis of right upper limb; B95.0 Streptococcus, group A, as the cause of diseases classified elsewhere; F32.9 Major depressive disorder, single episode, unspecified; R01.1 Cardiac murmur, unspecified; F43.10 Post-traumatic stress disorder, unspecified; G89.29 Other chronic pain; M54.5 Low back pain; F11.10 Opioid abuse, uncomplicated; F15.10 Other stimulant abuse, uncomplicated; F12.10 Cannabis abuse, uncomplicated; F17.210 Nicotine dependence, cigarettes, uncomplicated; Z88.0 Allergy status to penicillin; Z79.899 Other long term (current) drug therapy; Z79.82 Long term (current) use of aspirin; Z59.0 Homelessness; Z03.818 Encounter for observation for suspected exposure to other biological agents ruled out
CPT/HCPCS: 01780; 01922; 36415; 71045; 80048; 80053; 80307; 81001; 82803; 82962; 83605; 83735; 85025; 85610; 87040; 87070; 87075; 87077; 87086; 87150; 87186; 87205; 87635; 93005; 93010; 93306; 93312; 93325; 96365; 96367; 96375; 99285; C9803; J0330; J0696; J1170; J1644; J1885; J2250; J2270; J2405; J2704; J3010; J3370; J3490; J7030; J7060; J7120

== ENCOUNTER 2020-04-12 11:59 | Emergency (ER) | payer OTHER ==
[2020-04-12 12:05] VITALS: BP 133/88
--- NOTE | 2020-04-12 12:30 | ER Document Report ---
ED Wound - General Chief Complaint: Wound Recheck Stated Complaint: WOUND CHECK Time Seen by Provider: 04/12/20 12:28 Primary Care Provider: SILVANA ZAMAN [Primary Care Provider] - Follow up as needed Notes: This 39-year-old male presented emergency room today for recheck of a wound to his right forearm from having vein taken out. The edges are pink there is no pus he has no fever no nausea no vomiting TRAVEL OUTSIDE OF THE [place] IN LAST 30 DAYS: No - HPI Occurred: Just prior to arrival Quality of pain: No pain Skin Temperature: Warm Skin Color: Normal - Related Data Allergies/Adverse Reactions: amoxicillin trihydrate [From Amoxil] Allergy (Verified 03/26/20 13:24) rash Past Medical History - General Information source: Patient - Social History Smoking Status: Current Every Day Smoker Cigarette use (# per day): Yes Smoking Education Provided: Yes Frequency of alcohol use: None Drug Abuse: Other Family History: Hypertension Renal/ Medical History: Reports: Hx Kidney Stones. Denies: Hx Peritoneal Dialysis Psychiatric Medical History: Reports: Hx Depression - PTSD, Hx Post Traumatic Stress Disorder Past Surgical History: Reports: Hx Appendectomy, Hx Genitourinary Surgery - kidney stent, stone removal, Hx Orthopedic Surgery - right ankle, Hx Tonsillectomy - Immunizations Hx Diphtheria, Pertussis, Tetanus Vaccination: Yes Review of Systems - Review of Systems Constitutional: No symptoms reported EENT: No symptoms reported Cardiovascular: No symptoms reported Respiratory: No symptoms reported Gastrointestinal: No symptoms reported Genitourinary: No symptoms reported Male Genitourinary: No symptoms reported Musculoskeletal: No symptoms reported Skin: No symptoms reported, Other - Healing wound to right forearm Hematologic/Lymphatic: No symptoms reported Neurological/Psychological: No symptoms reported Physical Exam - Vital signs Vitals: Temp Pulse Resp BP Pulse Ox 98.8 F 66 16 133/88 H 99 04/12/20 12:03 04/12/20 12:03 04/12/20 12:03 04/12/20 12:03 04/12/20 12:03 Interpretation: Normal - General General appearance: Appears well, Alert - HEENT Head: Normocephalic, Atraumatic Eyes: Normal Pupils: PERRL - Respiratory Respiratory status: No respiratory distress Chest status: Nontender Breath sounds: Normal Chest palpation: Normal - Cardiovascular Rhythm: Regular Heart sounds: Normal auscultation Murmur: No - Abdominal Inspection: Normal Distension: No distension Bowel sounds: Normal Tenderness: Nontender Organomegaly: No organomegaly - Back Back: Normal, Nontender - Extremities General upper extremity: Normal inspection, Nontender, Normal color, Normal ROM, Normal temperature General lower extremity: Normal inspection, Nontender, Normal color, Normal ROM, Normal temperature, Normal weight bearing. No: Cristino's sign - Neurological Neuro grossly intact: Yes Cognition: Normal Orientation: AAOx4 [place] Coma Scale Eye Opening: Spontaneous [place] Coma Scale Verbal: Oriented Jc Coma Scale Motor: Obeys Commands [place] Coma Scale Total: 15 Speech: Normal Motor strength normal: LUE, RUE, LLE, RLE Sensory: Normal - Psychological Associated symptoms: Normal affect, Normal mood - Skin Skin Temperature: Warm Skin Moisture: Dry Skin Color: Normal Course - Vital Signs Vital signs: Temp Pulse Resp BP Pulse Ox 98.8 F 66 16 133/88 H 99 04/12/20 12:03 04/12/20 12:03 04/12/20 12:03 04/12/20 12:03 04/12/20 12:03 Discharge - Discharge Clinical Impression: Encounter for wound re-check Condition: Good Disposition: HOME, SELF-CARE Additional Instructions: Continue with current wound care regime follow-up with PMD in 3 to 5 days. Increase fluid intake rest return for any change worsening condition. Referrals: [facility] [[facility]] - Follow up as needed
== END 2020-04-12 12:43 | disposition home or self-care (01) ==
LOC: ER 11:59
DX: Z48.812 Encounter for surgical aftercare following surgery on the circulatory system (principal); F17.210 Nicotine dependence, cigarettes, uncomplicated; Z88.0 Allergy status to penicillin
CPT/HCPCS: 99281

== ENCOUNTER 2020-06-22 13:15 | Emergency (ER) | payer OTHER ==
--- NOTE | 2020-06-22 13:18 | ER Document Report ---
ED Medical Screen (RME) - General Chief Complaint: Medical Clearance Stated Complaint: MEDICAL CLEARANCE Time Seen by Provider: 06/22/20 13:16 Primary Care Provider: SILVANA ZAMAN [Primary Care Provider] - Follow up as needed Mode of Arrival: Ambulatory Information source: Patient, Friend - Piero Mascorro ([facility] rep) [phone] Notes: 40-year-old male patient with history of PTSD, TBI and schizophrenia presenting to the emergency department with customer counter representative from the [facility]. Apparently the patient is supposed to be on monthly injections for "cravings". He has been off of the medication for some time. He is having hallucinations. Denies SI/HI, laughed when I asked. I have greeted and performed a rapid initial assessment of this patient. A comprehensive ED assessment and evaluation of the patient, analysis of test results and completion of the medical decision making process will be conducted by additional ED providers. I have specifically instructed the patient or family members with the patient to immediately return to any nursing staff should anything change in the patient's condition or with their chief complaint. TRAVEL OUTSIDE OF THE [place] IN LAST 30 DAYS: No - Related Data Allergies/Adverse Reactions: amoxicillin trihydrate [From Amoxil] Allergy (Verified 03/26/20 13:24) rash Past Medical History Renal/ Medical History: Reports: Hx Kidney Stones. Denies: Hx Peritoneal Dialysis Psychiatric Medical History: Reports: Hx Depression - PTSD, Hx Post Traumatic Stress Disorder Past Surgical History: Reports: Hx Appendectomy, Hx Genitourinary Surgery - kidney stent, stone removal, Hx Orthopedic Surgery - right ankle, Hx Tonsillectomy - Immunizations Hx Diphtheria, Pertussis, Tetanus Vaccination: Yes Physical Exam - Vital signs Vitals: Temp Pulse Resp BP Pulse Ox 98.1 F 100 16 149/93 H 97 06/22/20 13:20 06/22/20 13:20 06/22/20 13:20 06/22/20 13:20 06/22/20 13:20 Course - Vital Signs Vital signs: Temp Pulse Resp BP Pulse Ox 98.1 F 100 16 149/93 H 97 06/22/20 13:20 06/22/20 13:20 06/22/20 13:20 06/22/20 13:20 06/22/20 13:20 Doctor's Discharge - Discharge Referrals: [facility] - Follow up as needed
[2020-06-22 14:57] LABS: ABSOLUTE BASOPHILS # (AUTO) 0.1 10^3/uL (0.0-0.2); ABSOLUTE EOSINOPHILS # (AUTO) 0.1 10^3/uL (0.0-0.6); ABSOLUTE LYMPHOCYTES (AUTO) 2.4 10^3/uL (0.5-4.7); ABSOLUTE MONOCYTES (AUTO) 0.9 10^3/uL (0.1-1.4); ABSOLUTE NEUT (AUTO) 5.9 10^3/uL (1.7-8.2); BASOPHILS % (AUTO) 0.7 % (0-2); EOSINOPHILS % (AUTO) 0.6 % (0-6); HEMOGLOBIN 13.9 g/dL (13.5-17.0); MEAN CORPUSCULAR HEMOGLOBIN 32.2 pg (27.0-33.4); MEAN CORPUSCULAR HGB CONC 34.7 g/dL (32.0-36.0); MEAN CORPUSCULAR VOLUME 93 fl (80-97); MONOCYTES % (AUTO) 9.6 % (3-13); PLATELET COUNT 324 10^3/uL (150-450); RED BLOOD COUNT 4.31 10^6/uL (4.35-5.55); SEGMENTED NEUTROPHILS % (AUTO) 63.1 % (42-78); TOTAL CELLS COUNTED % (AUTO) 100 %; WHITE BLOOD COUNT 9.4 10^3/uL (4.0-10.5)
[2020-06-22 15:19] LABS: ALBUMIN 4.4 g/dL (3.5-5.0); ALKALINE PHOSPHATASE 68 U/L (38-126); ANION GAP 6 (5-19); ASPARTATE AMINO TRANSFERASE 52 U/L (17-59); BILIRUBIN,DIRECT 0.4 mg/dL (0.0-0.4); BILIRUBIN,TOTAL 0.5 mg/dL (0.2-1.3); BLOOD UREA NITROGEN 15 mg/dL (7-20); CALCIUM 9.6 mg/dL (8.4-10.2); CARBON DIOXIDE 29 mmol/L (22-30); CHLORIDE 107 mmol/L (98-107); GLUCOSE 92 mg/dL (75-110); POTASSIUM 4.3 mmol/L (3.6-5.0); TOTAL PROTEIN 7.2 g/dL (6.3-8.2)
[2020-06-22 15:22] LABS: ACETAMINOPHEN < 10 ug/mL (10-30); ALCOHOL < 10 mg/dL (NONE DETECTED); SALICYLATE < 1.0 mg/dL (2.0-20.0)
[2020-06-22 15:24] LABS: APPEARANCE,URINE SLIGHTLY-CLOUDY; BILIRUBIN,URINE NEGATIVE (NEGATIVE); GLUCOSE, URINE NEGATIVE (NEGATIVE); KETONES,URINE NEGATIVE (NEGATIVE); LEUKOCYTE ESTERASE,URINE MODERATE (NEGATIVE); NITRITE,URINE NEGATIVE (NEGATIVE); PROTEIN,URINE 100 mg/dL (NEGATIVE); URIC ACID CRYSTALS,URINE FEW /HPF; URINE SPECIFIC GRAVITY 1.027
[2020-06-22 15:25] LABS: COLOR,URINE YELLOW
[2020-06-22 15:37] LABS: URINE BARBITURATES SCREEN NEGATIVE; URINE BENZODIAZEPINES SCREEN NEGATIVE; URINE COCAINE SCREEN NEGATIVE; URINE MARIJUANA (THC) SCREEN NEGATIVE; URINE METHADONE SCREEN NEGATIVE; URINE PHENCYCLIDINE SCREEN NEGATIVE
--- NOTE | 2020-06-22 16:19 | ER Document Report ---
ED General - General Chief Complaint: Medical Clearance Stated Complaint: MEDICAL CLEARANCE Time Seen by Provider: 06/22/20 13:16 Primary Care Provider: [facility] [[facility]] - Follow up as needed Mode of Arrival: Ambulatory Notes: This 40-year-old man presents to the emergency department for medical clearance for placement and a rehabilitation program. He has a history of PTSD, TBI and schizophrenialike room. He is here with a contact center representative from the [facility]. He denies suicidal or homicidal ideation and presently denies any active medical concerns. History of opiate abuse. Patient refused to talk with this examiner. TRAVEL OUTSIDE OF THE [place] IN LAST 30 DAYS: No - Related Data Allergies/Adverse Reactions: amoxicillin trihydrate [From Amoxil] Allergy (Verified 03/26/20 13:24) rash Past Medical History - General Information source: Patient, Friend - Piero Mascorro ([facility] [facility] rep) [phone] - Social History Smoking Status: Unknown if Ever Smoked Family History: Hypertension Patient has homicidal ideation: No Renal/ Medical History: Reports: Hx Kidney Stones. Denies: Hx Peritoneal Dialysis Psychiatric Medical History: Reports: Hx Depression - PTSD, Hx Post Traumatic Stress Disorder Past Surgical History: Reports: Hx Appendectomy, Hx Genitourinary Surgery - kidney stent, stone removal, Hx Orthopedic Surgery - right ankle, Hx Tonsillectomy - Immunizations Hx Diphtheria, Pertussis, Tetanus Vaccination: Yes Review of Systems - Review of Systems Notes: Constitutional: Negative for fever. HENT: Negative for sore throat. Eyes: Negative for visual changes. Cardiovascular: Negative for chest pain. Respiratory: Negative for shortness of breath. Gastrointestinal: Negative for abdominal pain, vomiting or diarrhea. Genitourinary: Negative for dysuria. Musculoskeletal: Negative for back pain. Skin: Negative for rash. Neurological: Negative for headaches, weakness or numbness. 10 point ROS negative except as marked above and in HPI. Physical Exam - Vital signs Vitals: Temp Pulse Resp BP Pulse Ox 98.1 F 100 16 149/93 H 97 06/22/20 13:20 06/22/20 13:20 06/22/20 13:20 06/22/20 13:20 06/22/20 13:20 - Notes Notes: PHYSICAL EXAMINATION: Physical Exam: General: Well-nourished well-developed 40 yo male in no acute distress HEENT: NC/AT, pupils equal round and reactive to light, MM moist,nares clear, oropharynx clear, airway patent Neck: supple, no adenopathy, no masses. Good range of motion Lungs: clear, no wheezing, no rales no rhonchi CVS: Regular rate and rhythm no murmur gallop or rub Abdomen: Soft, active, nontender, no masses, no hepatosplenomegaly Ext: No edema, clubbing or cyanosis. Neuro: Alert and responsive, moving all 4 extremities on command, cranial nerves intact, no focal findings Skin: Intact no open lesions, no rash PSYCH: Poorly cooperative and not volunteering information. Course - Vital Signs Vital signs: Temp Pulse Resp BP Pulse Ox 98.1 F 100 16 149/93 H 97 06/22/20 13:20 06/22/20 13:20 06/22/20 13:20 06/22/20 13:20 06/22/20 13:20 - Laboratory Result Diagrams: 06/22/20 14:45 06/22/20 14:45 Laboratory results interpreted by me: 06/22/20 06/22/20 06/22/20 14:45 14:45 14:50 RBC 4.31 L RDW 15.0 H Urine Protein 100 H Urine Blood MODERATE H Urine Urobilinogen 2.0 H Ur Leukocyte Esterase MODERATE H Salicylates < 1.0 L Acetaminophen < 10 L Discharge - Discharge Clinical Impression: Delusional disorder, PTSD (post-traumatic stress disorder) TBI (traumatic brain injury) Qualifiers: Encounter type: sequela Loss of consciousness presence/duration: with LOC of unspecified duration Qualified Code(s): S06.9X9S - Unspecified intracranial injury with loss of consciousness of unspecified duration, sequela Condition: Good Disposition: PSYCH HOSP/UNIT [facility]errals: [facility] [[facility]] - Follow up as needed
--- NOTE | 2020-06-22 18:34 | EKG REPORT ---
SEVERITY:- ABNORMAL ECG - SINUS RHYTHM NONSPECIFIC T ABNORMALITIES, INFERIOR LEADS : Confirmed by: Haseeb Pineda MD 22-Jun-2020 18:33:42
[2020-06-22] MEDS: HALOPERIDOL 5 MG TABLET PO SCH (19:57)
[2020-06-22] MEDS: BENZTROPINE MESYLATE 1 MG TABLET PO SCH (19:57)
[2020-06-23] MEDS: CHLORPROMAZINE HCL 50 MG TABLET PO PRN ×2 (07:59→20:11)
[2020-06-23] MEDS: HALOPERIDOL 5 MG TABLET PO SCH ×2 (09:09→18:40)
[2020-06-23] MEDS: BENZTROPINE MESYLATE 1 MG TABLET PO SCH (09:09)
--- NOTE | 2020-06-23 16:34 | ER Document Report ---
Doctor's Note Notes: 06/23/20 16:32 Patient's vital signs and previous labs, diagnostic images reviewed. Reviewed mental health notes, nurse's notes and previous providers notes. VSS. Pt is in no distress at this time. Denies any SI or HI. Patient is still psychotic, will likely stay the weekend due to being a holiday weekend. General: A&Ox3. Erratic conversation Heart: RRR Lungs: CTAB Psych: Flat affect A/P: Continue monitoring and rec's per MH. Normal diet [facility]
--- NOTE | 2020-06-24 07:44 | PSYCHOLOGICAL NOTE ---
Psych Note - Psych Note Date seen by psych provider: 06/22/20 Time seen by psych provider: 14:30 Psych Note: Reason for Consult: Psychosis Patient presented to [facility] ED with a medical customer service representative from the [facility]. Patient reports he is here for medical clearance. Clinician spoke with local [place]. They report the patient is diagnosed with PTSD, Substance abuse; opiates, Delusional disorder; persecutory type, and "schizophrenia like" psychotic disorder. The patient was to have the Invega month shot; however, the patient decline to take the shot. The patient They continue to report they were speaking with the patient earlier and [facility] and it is unclear why he came to [facility] ED rather than the clinic. Patient is prescribed Prozac 40mg daily, Visteral 25mg twice a daily and 50mg at bedtime, naltrexone 50mg daily and Invega 117ml/mg every 4 weeks. Patient has been inpatient multiple times in the past. Clinician attempted to contact [facility] medical customer service representative the transported the patient to [facility]; Left message. Clinician observed patient laying in stretcher on his stomach, covered with a blanket and his eyes closed. Patient refuses to open his eyes while talking to clinician. He reports he is here for medical clearance [facility]. He reports he has no further concerns at this time. Clinician received called back from Piero Almeida. He reports he has been working with the patient for many years. He states the patient suffers from delusions and "I am concerned he is demonstrating in a manor that he is having a breakdown." He report the patient believes there is a demon in him and is see ing other demons. He continued to report the patient reported to him that the last 6 months he has been "infiltrating" gangs because they are child trafficking to take the "adrenal chrome" to make a drug for the rich to make them young again. He states that upon arrival to [facility] ED the patient became nervous because he believed one of the security guards was part of a cult. He reports the last few days he has been on the phone with the patient almost 12 hours a day keeping the patient calm and to convince the patient to disclose his location so he could receive help. He reports the patient today finally agreed to meet in person and so he brought him to [facility] ED. He confirms they are trying to get the patient a bed at the [facility], but there is not a confirmed placement yet. Patient continues to calmly lay in the stretcher with his eye closed. Clinician attempted to engage patient again in evaluation. He continues to keep his eyes closed. Thought content is guarded; however, he does start to slowly disclose his delusional thoughts. He reports significant distress in knowing "what is happening so he had to do something about it." He reports he did not feel safe but since coming into the [facility] ED room he feels safe. Medication recommendations per [facility]'s contracted psychiatrist Dr Ko CANTOR are as follows: Haldol 5mg twice daily Cogentin 1mg daily Thorazine 50mg every 8 hours as needed Impression/Plan: Patient is recommended for 24 hour petition for evaluation; paperwork is signed and placed in patient's chart. Patient has a history of substance use and there is concern the patient may be experiencing substance induced psychosis. Medication recommendations have been provided. Evaluation is on going. Dr. Phillips was consulted on the care and management of this patient; attending physician is in agreement with recommendations and disposition.
--- NOTE | 2020-06-24 08:25 | PSYCHOLOGICAL NOTE ---
Psych Note - Psych Note Date seen by psych provider: 06/23/20 Time seen by psych provider: 11:30 Psych Note: Reason for Consult:Delusions Patient arrived to [facility] ED via POV for psychiatric evaluation. There was concerns the patient was experiencing delusions. [facility] currently working on a possible placement in rehab, but there is not a confirmed bed. There is a need for the patient to be psychiatrically stabilized prior to going into rehab. Check in conducted with patient: Patient states he did not "refuse" his monthly shot "people told me not tot take it." He continues to discuss the letter he received from the [place]. He confirms they are trying to "get control of my money...but I feel like i can control my own money." (the [facility] has sent a letter to the patient reporting they are starting to process of determining if the patient is in need of a payee due to his disorders). Patient starts to discuss is delusions. He states there are gangs that are fighting for right and some are going to wrong. Patient again discusses his believes about the "people" stealing the adrenal glands; "they are sacrificing people for the elite drug that rejuvenates...I had a wrapper for one once...I have heard they have football field size facilities that farm babies...they keep the mothers to keep making babies...they eat the babies...COVID is the cover up for it...COVID is good because they want to take over, transfer power...I have been getting in with the people, even taking drugs with them to investigate...I can't sit back knowing what I know...I am qualified to infiltrate and investigate because I was a [employer]...I have not been put into a position that I have to hurt someone to get information yet." Patient continues to demonstrated guarded thoughts and as minimal eye contact. Medication recommendations per [facility]'s contracted psychiatrist Dr Ko CANTOR are as follows: Haldol 5mg twice daily Cogentin 1mg daily Thorazine 50mg every 8 hours as needed Impression/Plan: patient is recommended for full IVC; paperwork is signed, faxed to transportation modeler and placed in patient's chart. Patient continues to disclose delusional thoughts. He has put himself into harm and put others in harm do to those beliefs. The patient reports "investigating: people and taking drugs to "infiltrate" groups of people. He states he has not harmed anyone for information yet but does not deny or confirm he would take physical action to obtain information he believes people have. The patient does not feel it inappropriate for him to take action or to take on investigations in to what he believes. Dr. Phillips was consulted on the care and management of this patient; attending physician is in agreement with recommendations and disposition.
[2020-06-24] MEDS: HALOPERIDOL 5 MG TABLET PO SCH ×2 (10:27→18:15)
[2020-06-24] MEDS: BENZTROPINE MESYLATE 1 MG TABLET PO SCH (10:27)
[2020-06-24] MEDS ORDERED: NICOTINE 21 MG/24 HR PATCH.TD24 TD ONE (12:45)
[2020-06-24] MEDS: CHLORPROMAZINE HCL 50 MG TABLET PO PRN (18:15)
--- NOTE | 2020-06-25 09:28 | ER Document Report ---
Doctor's Note Notes: 06/25/20 16:45 PHYSICAL EXAMINATION: GENERAL: Appears well, healthy, well-nourished, no acute distress. LUNGS: Equal breath sounds bilaterally and clear to auscultation. No wheezes rales or rhonchi. CARDIOVASCULAR: S1-S2, regular rate, regular rhythm. Radial pulses 2+, normal. ABDOMEN: Normoactive bowel sounds. Soft, nontender, no guarding, no rebound tenderness, and no masses palpated. PSYCH: Flat affect. Dr. Phillips is working on placement for this patient. Patient denies any suicidal or homicidal ideation. Earlier the patient requested a nicotine patch. He then declined it. No medication recommendations from mental health noted as of yet.
--- NOTE | 2020-06-25 09:47 | ER Document Report ---
Doctor's Note Notes: 06/24/20 12:30 Met with Patient for re-evaluation. He was slightly agitated and remained guarded and paranoid. He was not overly willing to share information and anxious about discharge. Advised him that he was not able to sign himself as requested. Explained several times the IVC process and paperwork. Discussed with him the current plan in process with respect to seeking placement and working with his [facility] equal opportunity representative to obtain placement at [facility] (?) out of State, but was awaiting approval and a bed offer. Patient upset because he felt he was betrayed as he "checked myself in to help other people and now I can't leave. I should have never come here." He refused to elaborate. Plan: Patient continues to meet IVC criteria as his delusions are notable and though he denies wanting to others or himself, the nature of his delusions place him at risk for inciting others and placing himself at risk for harm. Additionally, he stated he would not hurt others unless he forced too secondary to others continuing to hurt people (his belief system-delusions). This type of thinking and potential acting out is felt to place this Patient in immediate harm's way as well as place others in harm's way due to the unpredictability of this Patient. His conviction to his current delusions and belief system is felt to be dangerous and requires further inpatient structured and supervised medication management. ED Physician in agreement with disposition and recommendation.
[2020-06-25] MEDS: HALOPERIDOL 5 MG TABLET PO SCH (10:42)
[2020-06-25] MEDS: BENZTROPINE MESYLATE 1 MG TABLET PO SCH (10:42)
--- NOTE | 2020-06-25 13:12 | ER Document Report ---
Doctor's Note Notes: 06/25/20 13:10 PHYSICAL EXAMINATION: GENERAL: Well-appearing and in no acute distress. HEAD: Atraumatic, normocephalic. EYES: sclera anicteric, conjunctiva are normal. ENT: nares patent. Moist mucous membranes. NECK: Normal range of motion, supple without lymphadenopathy LUNGS: CTAB and equal. No wheezes rales or rhonchi. HEART: Regular rate and rhythm without murmurs ABDOMEN: Soft, nontender EXTREMITIES: Normal range of motion, no pitting edema. BACK: No tenderness NEUROLOGICAL: Cranial nerves grossly intact. Normal speech. PSYCH: Normal mood, normal affect. SKIN: Warm, Dry, normal turgor, no rashes or lesions noted Patient's previous urinalysis does have some leukocyte esterase, white blood cells and blood noted, will culture urine analysis today. Will start patient on Bactrim at this time. Patient otherwise medically clear pending behavioral health team disposition. 06/25/20 14:07 Repeat urinalysis reviewed, no concern for UTI at this time Course - Vital Signs Vital signs: Temp Pulse Resp BP Pulse Ox 97.6 F 61 16 119/60 97 06/25/20 06:45 06/25/20 06:45 06/25/20 06:45 06/25/20 06:45 06/25/20 06:45 - Laboratory Result Diagrams: 06/22/20 14:45 06/22/20 14:45 Laboratory results interpreted by me: 06/22/20 06/22/20 06/22/20 14:45 14:45 14:50 RBC 4.31 L RDW 15.0 H Urine Protein 100 H Urine Blood MODERATE H Urine Urobilinogen 2.0 H Ur Leukocyte Esterase MODERATE H Salicylates < 1.0 L Acetaminophen < 10 L 06/25/20 13:20 RBC RDW Urine Protein Urine Blood Urine Urobilinogen Ur Leukocyte Esterase TRACE H Salicylates Acetaminophen - EKG Interpretation by Ia EKG shows normal: Sinus rhythm Rhythm: NSR When compared to previous EKG there are: No significant change Additional EKG results interpreted by fl: 06/25/20 14:13 Sinus rhythm with rate of 80, QTc 453, patient with some T wave inversion in the inferior leads that was present on patient's prior, no significant change when compared to previous EKG. No acute ischemic changes.
[2020-06-25] MEDS ORDERED: SULFAMETHOXAZOLE/TRIMETHOPRIM 800-160 MG TABLET PO SCH (13:15)
[2020-06-25 13:43] LABS: APPEARANCE,URINE CLEAR; BILIRUBIN,URINE NEGATIVE (NEGATIVE); COLOR,URINE STRAW; GLUCOSE, URINE NEGATIVE (NEGATIVE); KETONES,URINE NEGATIVE (NEGATIVE); LEUKOCYTE ESTERASE,URINE TRACE (NEGATIVE); NITRITE,URINE NEGATIVE (NEGATIVE); PROTEIN,URINE NEGATIVE (NEGATIVE); URINE SPECIFIC GRAVITY 1.009; UROBILINOGEN,URINE NEGATIVE mg/dL (<2.0)
[2020-06-25 14:17] VITALS: BP 131/58
[2020-06-25 15:04] LABS: CHLAM PCR NOT DETECTED (NOT DETECT)
--- NOTE | 2020-06-25 19:09 | PSYCHOLOGICAL NOTE ---
Psych Note - Psych Note Date seen by psych provider: 06/25/20 Time seen by psych provider: 11:18 - Re evaluation with patient from [id number]. Coordinated with [facility] [place] [facility] person at 1307. Patient and [facility] [place] [employer] [facility] worker spoke. Psych Note: Patient is a 40 year old male in the Emergency Department on IVC for psychosis, methamphetamine abuse, opiate use, history of TBI and PTSD. Today patient was laying in bed. He stated "I'm fine, trying to force myself to sleep while waiting for my transition, I think [facility] [place] [facility] [facility] worker is trying to get me to a place in [place]." He denied current suicidal and homicidal ideation. He stated "I still have thoughts, I'm trying to let them pass by, when I do stuff like that drug, it's hard to tell what's real and what's not, but I'm coming back around to the other side, I'm not going to give in, but there is still a bunch of stuff happening that shouldn't." He identified "I was the one to reach out for help." He acknowledged "a house full of people using methamphetamine is not good, crazy shit happens, I don't want to see this happen." He stated "I do it to show people they can stop, I did get one silvia help and a job." Patient was alert and oriented to self, person, place, time and situation. Mood was euthymic with congruent affect. He denied current suicidal and homicidal ideation. Patient did not appear to be responding to internal stimuli as evidenced by fair eye contact and answering questions appropriately when addressed. Thought processes were linear and organized. Conversational speech was within normal limits for rate, tone and prosody. Intellectual abilities are estimated to be average. Insight, judgment and impulse control were fair as evidenced by improved mental state, ability to carry on dialogue conversation and recognizing he is coming back around after being under the influence of methamphetamine. At 1128 called [facility] [place] [facility] worker Piero Elle ([phone]). No answer left voice mail with call back information. He returned call at [phone]. He identified with the weekend and today being a Holiday [facility] was not available. He confirmed they are placing patient voluntarily out of state. He was made aware of plan of care to discharge. He and patient spoke over the phone. It was an appropriate conversation and patient stated Mr. Almeida would be following up with him tomorrow (06/26/2020). Clinical Presentation: Methamphetamine Induced Psychosis History of TBI and PTSD Impression/Plan: Patient is cleared from acute psychiatric services. Recommendation to rescind [facility] IVC. He denied suicidal and homicidal ideation. Psychosis has improved to the extent he was able to identify when he uses the methamphetamine it is difficult to tell what's real and what's not. He also noted how he is coming around back to the other side (sobering up). Patient provided with prescriptions for Haldol 5MG twice a day and Cogentin 1MG daily to continue to manage symptoms at home. Coordinated with [facility] [place] [facility] worker Piero Almeida who will be following up with patient tomorrow (06/26/2020) and they are seeking voluntary placement out of state via [facility] (unfortunately it was the weekend and then today a Holiday so they were not available). Patient psychoeducated on the importance of taking the medication at home, avoiding methamphetamine, being engaged with [facility] [place] [facility] worker, and following up with his [facility] providers while waiting to get voluntary treatment out of state (all was also documented on a mental health outpatient resource sheet). Patient provided [facility] mobile crisis numbers and the [facility] Crisis Hotline number. Consulted with Dr. Phillips regarding the management and care of patient. ED Provider in agreement with recommendations.
== END 2020-06-25 14:30 | disposition home or self-care (01) ==
LOC: ER 13:15
DX: F22 Delusional disorders (principal); F15.159 Other stimulant abuse with stimulant-induced psychotic disorder, unspecified; F43.10 Post-traumatic stress disorder, unspecified; S06.9X9S Unspecified intracranial injury with loss of consciousness of unspecified duration, sequela; X58.XXXS Exposure to other specified factors, sequela; R31.9 Hematuria, unspecified; Z88.0 Allergy status to penicillin; Z79.899 Other long term (current) drug therapy
CPT/HCPCS: 93005; 99284; 36415; 87086; 80307 ×4; 85025; 80053; 81001; 87491; 87591; 93010; J3490 ×2